=== PATIENT | male | born 1980 | race Caucasian/White ===

== ENCOUNTER 2020-01-09 21:50 | Emergency (ER) | payer BC, SELFPAY ==
--- NOTE | ~2020-01-09 | XR_ITS ---
EXAMINATION: XR chest 2V DATE: 01/09/2020 22:36 INDICATION: Heart palpitations TECHNIQUE: PA and lateral views of the chest are obtained. COMPARISON: None available FINDINGS: The lungs are free of acute opacities. There is no pleural effusion or pneumothorax. The ca rdiomediastinal silhouette is normal. The visualized bones and soft tissues are unremarkable. IMPRESSION: 1. No acute cardiopulmonary abnormality. Reviewed, dictated and finalized at location A. [facility]
--- NOTE | 2020-01-09 22:01 | ECG_ITS ---
Measurements Intervals [place] Rate: 88 P: 40 NE: 150 QRS: -34 QRSD: 89 T: 25 QT: 330 QTc: 401 Interpretive Statements SINUS RHYTHM ATRIAL PREMATURE COMPLEX LEFT AXIS DEVIATION BORDERLINE R WAVE PROGRESSION, ANTERIOR LEADS BORDERLINE ECG Electronically Signed On 01-10-2020 15:13:19 SIGNALLING AND COMMUNICATIONS ENGINEER by Azael Haskins D.O.
[2020-01-09 22:05] VITALS: BP 129/70; PULSE 87; RESP 20; TEMP 36.4; O2SAT 99
[2020-01-09 22:22] LABS: Basophils Absolute Auto 0.1 K/mm3 (0.0-0.1); Eosinophils Absolute Auto 0.1 K/mm3 (0-0.3); Eosinophils Percent Auto 0.7 % (0-4.4); Hematocrit 46.7 % (42.0-52.0); Hemoglobin 15.2 g/dL (14.0-18.0); Immature Granulocyte Absolute 0.03 K/mm3 (0.00-0.031); Immature Granulocyte Percent A 0.3 % (0-0.5); Lymphocytes Absolute Auto 1.84 K/mm3 (0.9-3.2); Lymphocytes Percent Auto 19.6 % (18.3-44.2); Mean Corpuscular HGB Conc 32.5 g/dl (32-36); Mean Corpuscular Hemoglobin 29.9 pg (26-34); Mean Corpuscular Volume 91.9 fl (80-100); Mean Platelet Volume 9.9 fl (7.4-10.4); Monocytes Percent Auto 10.7 % (2.6-8.5); Neutrophils Absolute Auto 6.4 K/mm3 (1.3-6.7); Neutrophils Percent Auto 67.7 % (45.5-73.1); Platelet Count Result 422 k/mm3 (150-375); Red Blood Count 5.08 M/mm3 (4.6-6.20); Red Cell Distribution Width 13.5 % (11.5-14.5); White Blood Count 9.4 K/mm3 (4.5-10.0)
[2020-01-09 22:32] LABS: INR 0.9; Prothrombin Time 12.3 Seconds (11.1-14.7)
[2020-01-09 22:33] LABS: Partial Thromboplastin Time 26.5 SECONDS (22.3-36.8)
[2020-01-09 22:35] LABS: Alanine Aminotransferase 26 U/L (4-50); Albumin Level 4.5 g/dL (3.5-5.1); Alkaline Phosphatase 62 U/L (38-126); Aspartate Amino Transferase 20 U/L (17-59); Bilirubin,Total 0.3 mg/dL (0.2-1.3); Blood Urea Nitrogen 12 mg/dL (9-20); Calcium 9.3 mg/dL (8.4-10.2); Carbon Dioxide 29 mmol/L (22-30); Chloride 100 mmol/L (98-107); Estimated Glomerular Filt Rate > 60; Glucose 153 mg/dL (75-110); Potassium 4.1 mmol/L (3.4-5.0); Sodium 140 mmol/L (137-145)
--- NOTE | 2020-01-09 22:41 | ED.GENADULT ---
HPI - General Adult General Chief complaint: Arrhythmia/Palpitations Stated complaint: palpitations Time Seen by Provider: 01/09/20 21:57 Source: patient Mode of arrival: ambulatory Limitations: no limitations History of Present Illness HPI narrative: Patient is a 39-year-old male who presents with intermittent fluttering of the chest noting history of atrial fibrillation has been under increasing stress denies any pain. Patient is not anything for his symptoms has history of anxiety as well patient notes last week he had a URI which has resolved patient on arrival in no distress denying any pain Related Data Home Medications Medication Instructions Recorded Confirmed hydrocodone 5 mg-acetaminophen 325 1 tablet PO Q6H PRN 11/26/19 12/10/19 mg tablet lisinopril 20 mg tablet 20 mg PO DAILY 11/26/19 12/10/19 multivitamin 1 tablet PO DAILY 11/26/19 12/10/19 tizanidine 4 mg tablet 4 mg PO TID PRN 11/26/19 12/10/19 sildenafil (pulm.hypertension) 20 See Rx Instructions PO .COMPLEX 12/10/19 12/10/19 mg tablet Allergies Allergy/AdvReac Type Severity Reaction Status Date / Time No Known Allergies Allergy Verified 01/09/20 22:09 Review of Systems Review of Systems: All systems reviewed & are unremarkable except as noted in HPI and below PMFSH Past Medical History Medical History Encounter for monitoring testosterone replacement therapy Family History Family History Mother Patient's mother is in good health Sibling Patient's sister is in good health Patient's brother is in good health Father Family history of diabetes mellitus in first degree relative Family history of congestive heart failure, Onset Age: 62 Family history of heart disease in male family member before age 55 Patient's father is Social History Social History Smoking status: Former smoker Smoking end date: 11/27/12 Alcohol intake: current Exam Narrative: Exam Narrative: GENERAL: Well-appearing, well-nourished, and in no acute distress. HEAD: Normocephalic, atraumatic. EYES: PERRLA and EOMI. ENT: Nares clear, no rhinorrhea or epistaxis. Mucous membranes moist. Oropharynx without tonsillar hypertrophy exudate or other lesions. NECK: Supple. No adenopathy or masses. CHEST: Clear to auscultation. No respiratory distress. No wheezes rales or rhonchi HEART: Regular rate and rhythm. No murmur heard. Normal peripheral pulses. EXTREMITIES: Normal range of motion. No edema. SKIN: Warm, dry, no rash. NEURO: No focal deficits. Alert and oriented x3. Cranial nerves II through XII grossly intact PSYCH: Normal mood and affect. Course Course Emergency Course: Patient in the room in no distress aware of case findings treatment plan and diagnosis agreeing to follow-up as directed or to return if symptoms worsen or concerns Vital Signs Vital signs: Vital Signs Temperature 97.6 F 01/09/20 22:05 Pulse Rate 87 01/09/20 22:05 Respiratory Rate 20 01/09/20 22:05 Blood Pressure 129/70 01/09/20 22:05 Pulse Oximetry 99 01/09/20 22:05 Temperature 97.6 F 01/09/20 22:05 Pulse Rate 80 01/10/20 00:27 Respiratory Rate 30 H 01/10/20 00:27 Blood Pressure 143/80 H 01/10/20 00:27 Pulse Oximetry 100 01/10/20 00:27 Medical Decision Making MDM Narrative Medical decision making narrative: Paitents EKGs and labs are without significant high risk changes. Cardiac risk facotrs were reviewd. Patient is felt likely to be low risk for ACS and resonable for further risk stratification testing as an outpatient. Pain was not suddne or maximal in onset without tearing or ripping. quality. No other signs or symptoms to suggest aortic dissection. A low-risk Wells criteria is noted. PE is felt to be unlikely. No pneumonia or URI symptoms were seen on
[2020-01-09 22:46] LABS: Troponin I < 0.012 ng/mL (0.000-0.034)
[2020-01-09 23:22] LABS: Thyroid Stimulating Hormone Reflex 0.729 uIU/mL (0.465-4.68)
[2020-01-10 00:27] VITALS: BP 143/80; PULSE 80; RESP 30; O2SAT 100
[2020-01-10] MEDS: KETOROLAC 30 MG/ML VIAL (*BKC) IV PUSH (00:46)
[2020-01-10 01:16] VITALS: TEMP 36.4
[2020-01-10 01:39] LABS: Troponin I < 0.012 ng/mL (0.000-0.034)
[2020-01-10 01:45] VITALS: BP 131/88; PULSE 78; RESP 19; O2SAT 97
== END 2020-01-10 01:45 | disposition home or self-care (01) ==
PROVIDERS: Emergency Medicine Emergency Medical Services; Emergency Provider Emergency Medicine; PCP Internal Medicine
DX: R00.2 Palpitations (principal); Z87.891 Personal history of nicotine dependence; I49.1 Atrial premature depolarization; R94.31 Abnormal electrocardiogram [ECG] [EKG]
CPT/HCPCS: 36415; 71046; 80053; 84443; 84484; 85025; 85380; 85610; 85730; 93005; 96374; 99284; J1885

== ENCOUNTER 2020-01-11 18:41 | Observation (INO) | payer BC, SELFPAY ==
[2020-01-11] VITALS (7 sets, daily range): BP systolic 114–129; BP diastolic 42–91; PULSE 92–157; RESP 16–18; TEMP 36.6–37.2; O2SAT 96–100; BMI 32.2; BMI 32.4
--- NOTE | ~2020-01-11 | XR_ITS ---
EXAMINATION: XR chest 2V DATE: 01/11/2020 22:28 INDICATION: Atrial fibrillation with rapid ventricular response. TECHNIQUE: PA and lateral views of the chest were obtained. COMPARISON: Chest radiograph dated 01/09/2020 and 09/21/2017 FINDINGS: The lungs remain clear with no focal airspace opacities, pulmonary edema, pleural effusion or pneumot horax. The cardiomediastinal silhouette is normal. Visualized bones and soft tissues are unremarkable . IMPRESSION: 1. No acute cardiopulmonary disease. Reviewed, dictated and finalized at location A. NC[facility] PRACTICE NURSE
--- NOTE | 2020-01-11 18:54 | ED.ARRPALP ---
HPI - Arrhythmia/Palpitations General Chief Complaint: Arrhythmia/Palpitations Stated Complaint: irregular heartbeat Time Seen by Provider: 01/11/20 18:52 Source: patient Mode of arrival: ambulatory Limitations: no limitations History of Present Illness HPI narrative: The pt is a 39 y/o male who presents to the ED c/o constant palpitations onset one hour ago. Pt describes the palpitations as feeling like a drum solo. Pt states that he has a PMHx of AFIB, and he has these episodes very infrequently. Pt states that he has had a previous cardiac ablation, and last had an episode of AFIB a couple of years ago. Pt notes that he is not on any medications for AFIB consistently because of how infrequent they are. Pt denies CP and dizziness. He notes that he may have had some SOB, but is unsure. Pt states that he does not drink alcohol or use any stimulants, and states that he smokes e-cigs without nicotine. Pt states that he is on Testosterone therapy. He states that he has a previous fusion that seems to have failed. Pt states that his rn appeals is Dr. Cooley. complaint: palpitations Onset (ago): hour(s) (1) Arrhythmia history: atrial fibrillation Associated symptoms: denies other symptoms Related Data Home Medications Medication Instructions Recorded Confirmed lisinopril 20 mg tablet 20 mg PO DAILY 11/26/19 01/11/20 multivitamin 1 tablet PO DAILY 11/26/19 01/11/20 tizanidine 4 mg tablet 4 mg PO TID PRN 11/26/19 01/11/20 duloxetine 30 mg PO DAILY 01/11/20 01/11/20 hydrocodone-acetaminophen 1 - 2 tablet PO Q4-6H PRN 01/11/20 01/11/20 sildenafil (pulm.hypertension) 20 mg PO DIRECTED PRN 01/11/20 01/11/20 Allergies Allergy/AdvReac Type Severity Reaction Status Date / Time No Known Allergies Allergy Verified 01/09/20 22:09 Review of Systems Review of Systems: All systems reviewed & are unremarkable except as noted in HPI and below Cardiovascular: Cardiovascular: Denies chest pain and Reports other (Palpitations that feel like a drum solo ) Neurologic: Denies dizziness PMFSH Past Medical History Medical History (Updated 01/11/20 @ 22:27 by Jenny Fischer MD) Afib Angina at rest Anxiety Chronic back pain Chronic back pain Encounter for monitoring testosterone replacement therapy Foot fracture, right HTN (hypertension) IBS (irritable bowel syndrome) Left radial fracture PUD (peptic ulcer disease) Sleep apnea Spinal fusion failure Surgical History Surgical History H/O cardiac radiofrequency ablation H/O microdiscectomy H/O spinal fusion History of open reduction and internal fixation (ORIF) procedure left radius Hx of LASIK Family History Family History Mother Patient's mother is in good health Sibling Patient's sister is in good health Patient's brother is in good health Father Family history of diabetes mellitus in first degree relative Family history of congestive heart failure, Onset Age: 62 Family history of heart disease in male family member before age 55 Patient's father is Social History Social History Smoking status: Former smoker Smoking end date: 11/27/12 Alcohol intake: former Substance use type: marijuana Gender identity (if verbalized by the patient): Male Spiritual care concerns: No Agree to blood products: Yes Comments PCP: Dr. Woodall Cardiology: Dr. Cooley Exam Narrative: Exam Narrative: GENERAL: Well-appearing, well-nourished, and in no acute distress. HEAD: Normocephalic, atraumatic EYES: PERRLA and EOMI, conjunctiva clear without discharge THROAT:Mucous membranes moist, Oropharynx normal without erythema, exudate, peritonsillar swelling or fluctuance NECK: Supple, without lymphadenopathy or mass RESPIRATORY: No respiratory distress, Airway patent, Respirations
--- NOTE | 2020-01-11 19:07 | ECG_ITS ---
Measurements Intervals [place] Rate: 155 P: ND: 0 QRS: -58 QRSD: 86 T: 60 QT: 254 QTc: 409 Interpretive Statements ATRIAL FIBRILLATION WITH RAPID VENTRICULAR RESPONSE LEFT ANTERIOR FASCICULAR BLOCK MINIMAL Q WAVES- LATERAL LEADS ABNORMAL ECG Electronically Signed On 01-12-2020 7:38:02 SIDE STITCHING MACHINE OPERATOR by Azael Haskins D.O.
[2020-01-11 19:23] LABS: Basophils Absolute Auto 0.1 K/mm3 (0.0-0.1); Basophils Percent Auto 1.4 % (0.2-1.2); Eosinophils Absolute Auto 0.1 K/mm3 (0-0.3); Eosinophils Percent Auto 1.2 % (0-4.4); Hematocrit 49.2 % (42.0-52.0); Hemoglobin 15.9 g/dL (14.0-18.0); Immature Granulocyte Absolute 0.04 K/mm3 (0.00-0.031); Immature Granulocyte Percent A 0.5 % (0-0.5); Lymphocytes Absolute Auto 1.88 K/mm3 (0.9-3.2); Lymphocytes Percent Auto 23.4 % (18.3-44.2); Mean Corpuscular HGB Conc 32.3 g/dl (32-36); Mean Corpuscular Hemoglobin 29.6 pg (26-34); Mean Corpuscular Volume 91.4 fl (80-100); Mean Platelet Volume 10.1 fl (7.4-10.4); Monocytes Absolute Auto 0.7 K/mm3 (0.1-0.6); Monocytes Percent Auto 8.9 % (2.6-8.5); Neutrophils Absolute Auto 5.2 K/mm3 (1.3-6.7); Neutrophils Percent Auto 64.6 % (45.5-73.1); Platelet Count Result 455 k/mm3 (150-375); Red Blood Count 5.38 M/mm3 (4.6-6.20); Red Cell Distribution Width 13.3 % (11.5-14.5); White Blood Count 8.1 K/mm3 (4.5-10.0)
[2020-01-11 19:32] LABS: INR 0.9; Prothrombin Time 11.9 Seconds (11.1-14.7)
[2020-01-11 19:33] LABS: Partial Thromboplastin Time 26.2 SECONDS (22.3-36.8)
[2020-01-11 19:35] LABS: Alanine Aminotransferase 26 U/L (4-50); Albumin Level 4.9 g/dL (3.5-5.1); Alkaline Phosphatase 72 U/L (38-126); Aspartate Amino Transferase 23 U/L (17-59); Bilirubin,Total 0.5 mg/dL (0.2-1.3); Blood Urea Nitrogen 14 mg/dL (9-20); Calcium 9.6 mg/dL (8.4-10.2); Carbon Dioxide 27 mmol/L (22-30); Chloride 98 mmol/L (98-107); Estimated CRCL calculation 130 ml/min; Estimated Glomerular Filt Rate > 60; Glucose 112 mg/dL (75-110); Potassium 3.7 mmol/L (3.4-5.0); Sodium 141 mmol/L (137-145)
[2020-01-11] MEDS: LACTATED RINGERS 1,000 ML 999 ML IV CONT (19:53)
[2020-01-11 21:24] LABS: Troponin I < 0.012 ng/mL (0.000-0.034)
[2020-01-11] MEDS: ENOXAPARIN 120 MG/0.8 ML SYRINGE 115 MG SUB-Q (21:46)
[2020-01-11] MEDS: METOPROLOL TARTRATE INJ 5 MG/5 ML VIAL IV PUSH (21:54)
--- NOTE | 2020-01-11 22:09 | PM.IMHP ---
H&P: HPI History of Present Illness Chief complaint: ATRIAL FIBRILLATION WITH RVR Narrative: This is a pleasant 39 year old Diabetic male with known history of paroxysmal atrial fibrillation. He was previously on Xarelto and has not had sustained atrial fibrillation for over 2 years since his last ablation. The patient presented to the hospital a few days ago when he felt that he was having intermittent fluttering of his chest. Tonight he returned to the hospital with palpitations and tachycardia. He states he knew he was back in atrial fibrillation. He denies any chest pain tonight. Associated symptoms tonight included shortness of breath especially when he was walking into the ER. The patient was found to be in atrial fibrillation w/ RVR in the ER. He has had congestion over the past week but no significant coughing, fevers, sore throat, or severe shortness of breath. He denies any recent rectal bleeding. No other symptoms are reported. He hasn't stopped any of his home medications although he reports that earlier in the week he took old cymbalta as he had run out. ER provider has consulted Cardiology. No chest xray was obtained in the ER tonight and his last CXR from 01/09/2020 was unremarkable. No other complaints tonight. Review of Systems Review of Systems: All systems reviewed & are unremarkable except as noted in HPI and below PMFSH Past Medical History Medical History Afib Angina at rest Anxiety Chronic back pain Chronic back pain Encounter for monitoring testosterone replacement therapy Foot fracture, right HTN (hypertension) IBS (irritable bowel syndrome) Left radial fracture PUD (peptic ulcer disease) Sleep apnea Spinal fusion failure Surgical History Surgical History H/O cardiac radiofrequency ablation H/O microdiscectomy H/O spinal fusion History of open reduction and internal fixation (ORIF) procedure left radius Hx of FABBY Family History Family History Mother Patient's mother is in good health Sibling Patient's sister is in good health Patient's brother is in good health Father Family history of diabetes mellitus in first degree relative Family history of congestive heart failure, Onset Age: 62 Family history of heart disease in male family member before age 55 Patient's father is Social History Social History Smoking status: Former smoker Smoking end date: 11/27/12 Alcohol intake: former Substance use type: marijuana Gender identity (if verbalized by the patient): Male Spiritual care concerns: No Agree to blood products: Yes Meds Home Medications and Allergies Home Medications Medication Instructions Recorded Confirmed Type lisinopril 20 mg tablet 20 mg PO DAILY 11/26/19 01/11/20 History multivitamin 1 tablet PO DAILY 11/26/19 01/11/20 History tizanidine 4 mg tablet 4 mg PO TID PRN 11/26/19 01/11/20 History metformin 500 mg tablet 1,000 mg PO BID #360 tablet 12/17/19 01/11/20 Rx testosterone cypionate 200 mg/mL 150 mg IM WEEKLY #10 ml 12/17/19 01/11/20 Rx intramuscular oil duloxetine 60 mg capsule,delayed 60 mg PO DAILY #30 cap 01/08/20 01/11/20 Rx release duloxetine 30 mg PO DAILY 01/11/20 01/11/20 History hydrocodone-acetaminophen 1 - 2 tablet PO Q4-6H PRN 01/11/20 01/11/20 History sildenafil (pulm.hypertension) 20 mg PO DIRECTED PRN 01/11/20 01/11/20 History Allergies Allergy/AdvReac Type Severity Reaction Status Date / Time No Known Allergies Allergy Verified 01/09/20 22:09 Vital Signs Vital Signs - 24 hr 01/11/20 18:43 01/11/20 19:23 01/11/20 19:53 Temperature 37.2 C 36.9 C Pulse Rate 92 157 H 123 H Respiratory Rate 18 18 16 Blood Pressure 123/91 H 114/80 119/68 Pulse Oximetry 100 98 96
--- NOTE | 2020-01-11 22:38 | ADMGEN ---
This patient, Job Silva, was admitted to IMU Room 206-01 at 2237. Patient/family oriented to hospital policies and general routines including ID bracelet, bed and alarms, visiting hours, pain management, procedures, bathroom and other care routines, personal items, smoking policy, room service/diet, and visiting hours. Valuables list has been completed. Information on how to activate the Rapid Response Team has been discussed. Patient/Family are encouraged to report perceived risks to care and to ask questions if they do not understand what they are told or what they should do.
[2020-01-11 23:44] LABS: Glucose Point of Care 97 (65-105)
[2020-01-12] VITALS (17 sets, daily range): BP systolic 102–128; BP diastolic 53–74; PULSE 71–125; RESP 16–20; TEMP 35.7–36.6; O2SAT 97–99
[2020-01-12] MEDS: DULOXETINE HCL 30 MG CAPSULE.DR PO ×2 (00:20→17:08)
[2020-01-12] MEDS: DULOXETINE 60 MG CAPSULE.DR PO ×2 (00:20→17:08)
[2020-01-12 01:59] LABS: Troponin I < 0.012 ng/mL (0.000-0.034)
[2020-01-12 05:38] LABS: Basophils Absolute Auto 0.1 K/mm3 (0.0-0.1); Basophils Percent Auto 1.4 % (0.2-1.2); Eosinophils Absolute Auto 0.1 K/mm3 (0-0.3); Eosinophils Percent Auto 1.7 % (0-4.4); Hemoglobin 15.6 g/dL (14.0-18.0); Immature Granulocyte Absolute 0.04 K/mm3 (0.00-0.031); Immature Granulocyte Percent A 0.5 % (0-0.5); Lymphocytes Absolute Auto 2.38 K/mm3 (0.9-3.2); Lymphocytes Percent Auto 30.4 % (18.3-44.2); Mean Corpuscular HGB Conc 32.5 g/dl (32-36); Mean Corpuscular Hemoglobin 29.8 pg (26-34); Mean Corpuscular Volume 91.6 fl (80-100); Mean Platelet Volume 10.3 fl (7.4-10.4); Monocytes Absolute Auto 0.8 K/mm3 (0.1-0.6); Monocytes Percent Auto 10.1 % (2.6-8.5); Neutrophils Absolute Auto 4.4 K/mm3 (1.3-6.7); Neutrophils Percent Auto 55.9 % (45.5-73.1); Platelet Count Result 430 k/mm3 (150-375); Red Blood Count 5.24 M/mm3 (4.6-6.20); Red Cell Distribution Width 13.2 % (11.5-14.5); White Blood Count 7.8 K/mm3 (4.5-10.0)
[2020-01-12 05:49] LABS: Blood Urea Nitrogen 13 mg/dL (9-20); Calcium 8.6 mg/dL (8.4-10.2); Carbon Dioxide 26 mmol/L (22-30); Chloride 102 mmol/L (98-107); Estimated CRCL calculation 164 ml/min; Estimated Glomerular Filt Rate > 60; Glucose 135 mg/dL (75-110); Magnesium 2.1 mg/dL (1.6-2.3); Potassium 3.8 mmol/L (3.4-5.0); Sodium 138 mmol/L (137-145)
[2020-01-12 08:16] LABS: Glucose Point of Care 136 (65-105)
[2020-01-12] MEDS: metFORMIN HCL 500 MG TABLET 1000 MG PO ×2 (10:20→17:08)
[2020-01-12] MEDS: MULTIVITAMINS THERAPEUTIC TAB (*BKC) 1 TABLET PO (10:20)
[2020-01-12] MEDS: ENOXAPARIN 120 MG/0.8 ML SYRINGE 110 MG SUB-Q (10:20)
[2020-01-12] MEDS: lisinopriL 20 MG TABLET PO (10:20)
--- NOTE | 2020-01-12 11:20 | PM.CNCAR ---
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 truck when he was taking in previously Will start oral systemic anticoagulation with Xarelto If he converts to sinus rhythm we can dha stop his IV diltiazem Follow-up tomorrow if used to persistent atrial fib and electrical cardioversion can be considered/performed History of Present Illness History of Present Illness Consult date/time: Date of service: 01/12/20 11:20 Consult reason: atrial fibrillation Reason For Visit: ATRIAL FIBRILLATION WITH RVR Narrative: This is a pleasant 39-year-old man who has a history of paroxysmal atrial fibrillation for a long time and is admitted to the hospital from the emergency room last evening with a symptomatic recurrence of his arrhythmia. The patient has been and is followed by Dr. Cooley of our practice. He has a history of atrial fibrillation beginning when he was a teenager. The patient has been through a number of recurrences of his arrhythmia which he says typically is self limited and does not require cardioversion. He does not believe that he is ever required an electrical cardioversion to restore sinus rhythm. In any event he was referred by Dr. Cooley for consultation and has undergone [address] Garcia at [facility]. Most recently he underwent a pulmonary base in isolation procedure in March of 2019 after which he has done well and has not had any recurrences of his AFib. Prior to that he was taking metoprolol and apixaban for systemic anticoagulation. Previously he was also on Xarelto. The patient has no send the chart indicating that he has not responded well to medical antiarrhythmic therapy but on taking his history today I am not sure that that is the case. He states that in the past when he has had recurrences of atrial fib P is commonly treated with propafenone and over time will convert back to sinus rhythm. As an outpatient then he states typically the drug is withdrawn. In the past he was also treated with amiodarone for short period of time he can't remember what difficulty if any he had with that agent. Nose of the only 2 specific antiarrhythmic agents Kemi whitmore has a regular direct recollection of having been used in the past. After his most recent ablation procedure as stated above his beta-gisella and anticoagulation treatment had been withdrawn. He was last seen in our office and November last month at which time he was clinically doing well. Yesterday when he had the recurrence of atrial fibrillation he was at a family which was somewhat stressful. The did received notice the arrhythmia though until later after the service was over in the there were having a family dinner. In the emergency room following evaluation he was of course placed on intravenous diltiazem which has provided fairly good heart rate control and after which she became essentially asymptomatic. He is receiving full-dose therapeutic subcu Lovenox. Review of Systems Constitutional: Constitutional: Reports no additional constitutional complaints Eyes: Eyes: Reports no additional eye complaints ENT: Reports system reviewed and no additional complaints, except as documented Cardiovascular: Cardiovascular: Reports as per HPI and Reports palpitations Respiratory: Respiratory: Reports no additional respiratory complaints Gastrointestinal: Gastrointestinal: Reports no additional gastrointestinal complaints Integumentary/Breasts: Skin/Breast: Reports system reviewed and no additional complaints, except as docu Neurologic: Reports system reviewed and no additional complaints, except as documented Psychiatric: Psy
--- NOTE | 2020-01-12 12:50 | PM.IMPN ---
Progress Note: A&P Assessment and Plan (1) Atrial fibrillation with RVR: Code(s): I48.91 - Unspecified atrial fibrillation Status: Acute Assessment and Plan: Appreciate help from cardiology. Telemetry reviewed on 01/12/2020 with atrial fibrillation with heart rate controlled. Currently on IV diltiazem drip. Plan to discontinue IV diltiazem if converts to sinus rhythm. Started on Rythmol per cardiology. Started on oral Xarelto. Will continue to monitor. (2) Diabetes mellitus: Qualifiers: Diabetes mellitus complication status: without complication Diabetes mellitus group home insulin use: without medical terminologist use Diabetes mellitus type: type 2 Qualified Code(s): E11.9 - Type 2 diabetes mellitus without complications Code(s): E11.9 - Type 2 diabetes mellitus without complications Status: Chronic Assessment and Plan: Glucose reviewed on 01/12/2020 and presently stable. Will check hemoglobin A1c. Continue metformin. Sliding scale insulin available as needed. (3) HTN (hypertension): Qualifiers: Hypertension type: unspecified Qualified Code(s): I10 - Essential (primary) hypertension Code(s): I10 - Essential (primary) hypertension Status: Chronic Assessment and Plan: Blood pressure reviewed on 01/12/2020 and stable. Continue to monitor with IV diltiazem and oral lisinopril. (4) Chronic back pain: Qualifiers: Back pain laterality: unspecified Back pain location: back pain in unspecified location Qualified Code(s): M54.9 - Dorsalgia, unspecified; G89.29 - Other chronic pain Code(s): M54.9 - Dorsalgia, unspecified; G89.29 - Other chronic pain Status: Chronic Assessment and Plan: Longstanding issue. Continue Cymbalta. Will hold home hydrocodone acetaminophen and tizanidine for now. Will continue to monitor. (5) DVT prophylaxis: Code(s): Z29.9 - Encounter for prophylactic measures, unspecified Status: Acute Assessment and Plan: Now on Xarelto. Time Spent With Patient Time with patient: 15 - 25 minutes Subjective Date/time seen: 01/12/20 12:50 Interval history: Date of Service: 01/12/2020. Admitted with atrial fibrillation with RVR. No chest pain or palpitations. Shortness of breath with exertion. No abdominal pain. No headache or dizziness. Review of Systems Constitutional: Constitutional: Denies chills and Denies fever(s) ENT: Reports system reviewed and no additional complaints, except as documented Cardiovascular: Cardiovascular: Denies chest pain and Denies palpitations Respiratory: Respiratory: Reports dyspnea on exertion Gastrointestinal: Gastrointestinal: Denies abdominal pain, Denies nausea and Denies vomiting Genitourinary: Genitourinary: Reports no additional male genitourinary complaints Integumentary/Breasts: Skin/Breast: Denies rash Neurologic: Denies vertigo and Denies headache(s) Psychiatric: Psychiatric: Denies anxiety, Denies confusion and Denies depression Exam Narrative: Exam Narrative: Awake and alert. Const: General: no acute distress HENMT: Mouth: Yes moist mucous membranes Neck: Neck: supple Lymphatic: lymphadenopathy not noted Resp: Auscultation: clear to auscultation bilaterally, no rales and no wheezes Cardio: Rate: regular rate Rhythm: abnormal rhythm irregularly irregular GI: Inspection: non-distended GI Palp: Yes Soft to palpation and No Tenderness to palpation present (GI) Auscultation: normal bowel sounds Skin: General skin exam: normal color Neuro: Cognition (Neuro): normal cognition Speech: normal speech Motor exam (neuro): Normal motor muscle tone present throughout Extrem: General: no edema Psych: Mental Status: mental status grossly normal Affect: normal affect Objective Data Vital Signs Vital Signs: Vital Signs - 24 hr 01/11/20 18:43 01/11/20 19:23 01/11/20 19:53 Temperature 98.9 F 98.4 F Pulse Rate 92 157
[2020-01-12 13:07] LABS: Glucose Point of Care 127 (65-105)
[2020-01-12] MEDS: RIVAROXABAN 20 MG TABLET PO (17:08)
[2020-01-12 17:18] LABS: Glucose Point of Care 149 (65-105)
[2020-01-12 20:24] LABS: Glucose Point of Care 119 (65-105)
[2020-01-13] VITALS (11 sets, daily range): BP systolic 126–141; BP diastolic 65–80; PULSE 60–85; RESP 16–20; TEMP 36.2–36.8; O2SAT 97–99
[2020-01-13 05:29] LABS: Blood Urea Nitrogen 14 mg/dL (9-20); Calcium 9.2 mg/dL (8.4-10.2); Carbon Dioxide 32 mmol/L (22-30); Chloride 98 mmol/L (98-107); Estimated CRCL calculation 146 ml/min; Estimated Glomerular Filt Rate > 60; Glucose 116 mg/dL (75-110); Magnesium 2.1 mg/dL (1.6-2.3); Potassium 3.9 mmol/L (3.4-5.0); Sodium 138 mmol/L (137-145)
[2020-01-13 05:40] LABS: Hemoglobin A1C 5.9 % (<5.7)
[2020-01-13 08:53] LABS: Glucose Point of Care 112 (65-105)
[2020-01-13] MEDS: MULTIVITAMINS THERAPEUTIC TAB (*BKC) 1 TABLET PO (08:56)
[2020-01-13] MEDS: metFORMIN HCL 500 MG TABLET 1000 MG PO (08:56)
[2020-01-13] MEDS: lisinopriL 20 MG TABLET PO (08:57)
--- NOTE | 2020-01-13 09:46 | PM.PNCARD ---
Progress Note: A&P Assessment and Plan (1) Atrial fibrillation with rapid ventricular response: Code(s): I48.91 - Unspecified atrial fibrillation Status: Acute Assessment and Plan: Converted to normal sinus rhythm 01/12/2020 at 5:38 p.m. after one dose of propafenone. Maintaining sinus rhythm. Echo has been completed. Continue Propafenone 325 mg every 12 hours. 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 Will have his records from [facility] scanned into his [facility] chart so that will be able to review. Additional Plan OK to discharge if echocardiogram is unremarkable. Plan discussed Dr. Barker [id number] 01/13/2020 Subjective Date/time seen: 01/13/20 09:46 Interval history: Follow-up for: Admitted with atrial fibrillation with RVR. Date of service: 01/13/2020 Subjective: Tired. Did not sleep very well. No chest discomfort, shortness of breath or palpitations. Chronic back pain. Review of Systems Constitutional: Constitutional: Denies chills and Denies fatigue Eyes: Eyes: Denies blurry vision ENT: Reports Normal hearing present and Denies dizziness Cardiovascular: Cardiovascular: Denies chest pain, Denies pedal edema, Denies lightheadedness, Denies dyspnea and Denies orthopnea Respiratory: Respiratory: Denies cough and Denies dyspnea Gastrointestinal: Gastrointestinal: Denies abdominal pain, Denies nausea and Denies vomiting Genitourinary: Genitourinary: Denies hematuria Musculoskeletal: Musculoskeletal: Reports back pain (Chronic) Integumentary/Breasts: Skin/Breast: Denies rash Neurologic: Reports Normal hearing present and Denies dizziness Psychiatric: Psychiatric: Denies anxiety and Denies depression Endocrine: Endocrine: Denies fatigue and Denies palpitations Hematologic/Lymphatic: Hematologic/Lymphatic: Denies easy bruising Exam Const: General: comfortable and no acute distress HENMT: Mouth: Yes moist mucous membranes Eyes: Sclera: sclerae normal Pupils: Equal, round and reactive pupils present Neck: Neck: supple and no JVD Other: Carotid upstrokes are normal with no bruits audible bilaterally Resp: Effort & Inspection: normal respiratory effort Auscultation: clear to auscultation bilaterally Cardio: Rhythm: abnormal rhythm GI: Auscultation: normal bowel sounds Skin: General skin exam: normal color Neuro: General: patient oriented x3 Cranial nerves: Yes Equal, round and reactive pupils present Cognition (Neuro): normal cognition Speech: normal speech Extrem: General: normal to inspection and no pedal edema Psych: Appearance: grossly normal Mental Status: mental status grossly normal Speech and movement: Normal speech and movement present Affect: normal affect Attitude: cooperative Thought process: Normal thought process present Thought content: Yes Normal thought content present Insight: Good insight present (Psych) Judgement: Good judgement present (Psych) Objective Data Vital Signs Vital Signs: Vital Signs - 24 hr 01/12/20 10:00 01/12/20 11:39 01/12/20 12:00 Temperature 35.8 C L Pulse Rate 102 H 79 102 H Respiratory Rate Blood Pressure 108/71 Pulse Oximetry 97 01/12/20 14:00 01/12/20 16:00 01/12/20 18:36 Temperature 36.1 C L Pulse Rate 89 78 74 Respiratory Rate 16 Blood Pressure 108/74 Pulse Oximetry 99 01/12/20 19:55 01/12/20 20:00 01/12/20 20:08 Temperature 36.6 C Pulse Rate 71 76 81 Respiratory Rate 20 Blood Pressure 128/66 Pulse Oximetry 98 01/12/20 22:00 01/13/20 00:00 01/13/20 02:00 Temperature 36.8 C Pulse Rate 77 73 72 Respiratory Rate 20 Blood Pressure 131/65 Pulse Oximetry 99 01/13/20 04:00 01/13/20 06:00 01/13/20 07:56 Temperature 36.4 C 36.2 C L Pulse Rate 60 68 64 Respiratory Rate 16 18 Blood Pressure 130/77 141/76 H Pulse Oximetry 98 97
--- NOTE | 2020-01-13 09:53 | PM.IMPN ---
Progress Note: A&P Assessment and Plan (1) Atrial fibrillation with RVR: Code(s): I48.91 - Unspecified atrial fibrillation Status: Acute Assessment and Plan: Appreciate help from cardiology. Telemetry reviewed on 01/13/2020 with sinus rhythm with patient having converted on 01/12/2020 at 1738 with IV diltiazem discontinued subsequently. Received 1 dose of Rythmol prior to conversion. Remains on Rythmol.atrial fibrillation with heart rate controlled. Remains on Xarelto anticoagulation. Discussed with Cardiology. Anticipate discharge today after review echocardiogram as long as no issues. Will need to see electromechanical technician as outpatient. Continue to monitor while here. (2) Diabetes mellitus: Qualifiers: Diabetes mellitus type: type 2 Diabetes mellitus middle or intermediate school principal insulin use: without intermediate use Diabetes mellitus complication status: without complication Qualified Code(s): E11.9 - Type 2 diabetes mellitus without complications Code(s): E11.9 - Type 2 diabetes mellitus without complications Status: Chronic Assessment and Plan: Hemoglobin A1c 5.9. Glucose reviewed on 01/13/2020 and controlled. Continue metformin. (3) HTN (hypertension): Qualifiers: Hypertension type: unspecified Qualified Code(s): I10 - Essential (primary) hypertension Code(s): I10 - Essential (primary) hypertension Status: Chronic Assessment and Plan: Blood pressure reviewed on 01/13/2020 and remains stable. Continue to monitor on lisinopril. (4) Chronic back pain: Qualifiers: Back pain location: back pain in unspecified location Back pain laterality: unspecified Qualified Code(s): M54.9 - Dorsalgia, unspecified; G89.29 - Other chronic pain Code(s): M54.9 - Dorsalgia, unspecified; G89.29 - Other chronic pain Status: Chronic Assessment and Plan: Longstanding issue. Continue Cymbalta. Resume home hydrocodone acetaminophen and tizanidine. (5) DVT prophylaxis: Code(s): Z29.9 - Encounter for prophylactic measures, unspecified Status: Acute Assessment and Plan: On Xarelto. Time Spent With Patient Time with patient: 15 - 25 minutes Subjective Date/time seen: 01/13/20 09:53 Interval history: Date of Service: 01/13/2020. Admitted with atrial fibrillation with RVR. Feels much better. No chest pain or palpitations. No shortness of breath. No headache or dizziness. Wants to go home. Review of Systems Review of Systems: Narrative: Feeling better. Wants to go home. Constitutional: Constitutional: Denies chills and Denies fever(s) ENT: Reports system reviewed and no additional complaints, except as documented Cardiovascular: Cardiovascular: Denies chest pain and Denies palpitations Respiratory: Respiratory: Denies dyspnea and Denies dyspnea on exertion Gastrointestinal: Gastrointestinal: Denies abdominal pain, Denies nausea and Denies vomiting Genitourinary: Genitourinary: Reports no additional male genitourinary complaints Musculoskeletal: Musculoskeletal: Reports back pain (Chronic) Integumentary/Breasts: Skin/Breast: Denies rash Neurologic: Denies confusion, Denies vertigo and Denies headache(s) Psychiatric: Psychiatric: Denies anxiety and Denies depression Exam Narrative: Exam Narrative: Awake and alert. Const: General: no acute distress HENMT: Mouth: Yes moist mucous membranes Neck: Neck: supple Lymphatic: lymphadenopathy not noted Resp: Auscultation: clear to auscultation bilaterally, no rales and no wheezes Cardio: Rate: regular rate Rhythm: regular rhythm and abnormal rhythm GI: Inspection: non-distended Auscultation: normal bowel sounds Skin: General skin exam: normal color Neuro: General: No confusion Cognition (Neuro): normal cognition Speech: normal speech Motor exam (neuro): Normal motor muscle tone present throughout Extrem: General: no edema Psych: Mental Status:
[2020-01-13 12:26] LABS: Glucose Point of Care 128 (65-105)
--- NOTE | 2020-01-13 20:51 | PM.DS ---
DS: Diagnosis Admitting Diagnosis Admitting Diagnosis: Unspecified atrial fibrillation Discharge Diagnosis (1) Atrial fibrillation with RVR: Code(s): I48.91 - Unspecified atrial fibrillation Status: Acute (2) Diabetes mellitus: Qualifiers: Diabetes mellitus complication status: without complication Diabetes mellitus rn long term care insulin use: without senior living use Diabetes mellitus type: type 2 Qualified Code(s): E11.9 - Type 2 diabetes mellitus without complications Code(s): E11.9 - Type 2 diabetes mellitus without complications Status: Chronic (3) HTN (hypertension): Qualifiers: Hypertension type: unspecified Qualified Code(s): I10 - Essential (primary) hypertension Code(s): I10 - Essential (primary) hypertension Status: Chronic (4) Chronic back pain: Qualifiers: Back pain laterality: unspecified Back pain location: back pain in unspecified location Qualified Code(s): M54.9 - Dorsalgia, unspecified; G89.29 - Other chronic pain Code(s): M54.9 - Dorsalgia, unspecified; G89.29 - Other chronic pain Status: Chronic DS: Summary Hospital Course Reason for hospitalization: Intermittent fluttering in chest. Hospital Course: Date of Service of Discharge: January 13, 2020. History of Present Illness: Patient is a 39-year-old gentleman with diabetes and known history of paroxysmal atrial fibrillation who presented to the emergency room complaint of intermittent fluttering of his chest. Patient has had previous ablation. He reports he has been having problems with palpitations and tachycardia and realized he was back in atrial fibrillation. No chest pain on presentation. He did have associated shortness of breath especially with activity. No recent fever, chills or sweats. No recent change in medications. On evaluation the emergency room, he was noted to be in atrial fibrillation with RVR. Cardiology was consulted with patient started on IV diltiazem drip. He was placed in observation for further evaluation and treatment. Course in Hospital: Patient was admitted to the intermediate care unit where he remained for the duration of his stay. As noted, he was started on IV diltiazem with cardiology consultation. After seen by Cardiology, propafenone was also started. Patient converted back to sinus rhythm at 5:38 p.m. on 01/12/2020 prior to 2nd dose of propafenone. At that time, diltiazem was discontinued and patient was continued to be monitored. He continued to be monitored with rhythm remaining in sinus and rate controlled. On the day of discharge with EF at 60-65% and no evidence of atrial dilation. He was placed on Xarelto for anticoagulation during his stay. Shortness of breath improved with heart rate control and conversion to sinus rhythm. Glucose was monitored throughout his stay and controlled on his home metformin. Blood pressure was monitored on home lisinopril and also stable with diltiazem in place as well as after diltiazem was discontinued. Home Cymbalta was continued for his back pain but other medications held. With patient now on propafenone, he was advised he would need to hold tizanidine due to potential interaction. With the patient stable and plan for outpatient follow-up with saw grinder, he was discharged home on January 13, 2020. Status at Discharge Cognitive/behavioral status at discharge: Stable. Functional status at discharge: independent ambulation Overall status at discharge: patient is back to baseline Time Spent with Patient Time attestation: Total time spent providing and/or coordinating discharge services: 40 minutes. Time spent: Greater than 30 minutes Exam Narrative: Exam Narrative: Vital Signs Temp Pulse Resp BP Pulse Ox 98.9 F 92 18 123/91 H 100 01/11/20 18:43 01/11/20 1
--- NOTE | 2020-01-13 22:06 | ECHO_ITS ---
Patient Info Name: Job Silva Age: 39 years : 1980 Gender: Male Ht: 74 in Wt: 250 lbs BSA: 2.46 m2 HR: 75 bpm BP: 130 / 77 mmHg Heart Rhythm: Sinus Rhythm Technical Quality: Good Exam Date: 01/13/2020 9:11 AM Exam Location: [facility] Patient Status: Inpatient Admit Date: 01/11/2020 Staff Ordering Physician: Esau Biggs MD Roofing Subcontractor: Carson Tompkins, SUNITA, RT Attending Provider: Esau Biggs MD Referring Physician: Dian LAUREN; Exam Type: CA echo doppler color flow Study Info Indications I48.0 - Paroxysmal atrial fibrillation Complete two-dimensional, color flow and Doppler transthoracic echocardiogram is performed. Summary 1. Left ventricular chamber dimension is normal. 2. Left ventricular systolic function is normal, estimated at 60-65%. 3. No evidence of atrial dilation. 4. No valvular pathology. Left Ventricle Left ventricular chamber dimension is normal. Left ventricular systolic function is normal, estimated at 60-65%. The left ventricular diastolic function is normal. Right Ventricle Right ventricular chamber dimension is normal. Left Atria Left atrial chamber dimension is normal. Right Atria Right atrial chamber dimension is normal. Aortic Valve The aortic valve is trileaflet. Pulmonic Valve The pulmonic valve is not well visualized. Mitral Valve The mitral valve has normal leaflets. Tricuspid Valve The tricuspid valve leaflets are normal. Pericardium/Pleural The pericardium appears normal. Aorta The aortic root size at the sinus of Valsalva is normal. Left Ventricular Outflow Tract Name Value Normal LVOT 2D LVOT Diameter 2.1 cm LVOT Doppler LVOT Peak Gradient 6 mmHg LVOT Mean Gradient 3 mmHg LVOT VTI 23 cm LVOT VTI/AV VTI Ratio 0.9 LVOT Stroke Volume 79 ml LVOT CO 6.2 l/min LVOT CI 2.5 l/min/m2 Pulmonic Valve Name Value Normal PV Doppler PV Peak Gradient 4 mmHg Mitral Valve Name Value Normal MV Doppler MV Decel [place] 462 cm/s2 MV PHT 56 ms MV Area (PHT) 3.9 cm2 4.0-5.0 MV Diastolic Function MV E Peak Velocity 90 cm/s MV A Peak Velocity 51 cm/s MV E/A
== END 2020-01-13 15:55 | disposition home or self-care (01) ==
LOC: ANHED 21:23 → ANHIMU 21:36
PROVIDERS: Admitting Provider Family Medicine; Emergency Provider General Practice; PCP Internal Medicine; Visit Provider Hospitalist
DX: I48.91 Unspecified atrial fibrillation (principal); E11.9 Type 2 diabetes mellitus without complications; I10 Essential (primary) hypertension; G89.29 Other chronic pain; M54.9 Dorsalgia, unspecified; Z87.891 Personal history of nicotine dependence; Z79.84 Long term (current) use of oral hypoglycemic drugs; Z79.899 Other long term (current) drug therapy
CPT/HCPCS: 36415; 71046; 80048; 80053; 83036; 83735; 84484; 85025; 85610; 85730; 93005; 93306; 96361; 96365; 96366; 96372; 96374; 96375; 99285; A9270; G0378; J1650; J7120

== ENCOUNTER → 2020-12-02 11:17 | Outpatient (CLI) | payer BC, SELFPAY ==
--- NOTE | ~2020-12-02 | US_ITS ---
EXAMINATION: US soft tissue head and neck DATE: 12/02/2020 11:50 INDICATION: Localized enlarged lymph nodes in right neck. TECHNIQUE: Multiple grayscale and Doppler ultrasound images of the neck were obtained. COMPARISON: None FINDINGS: There are normal-sized lymph nodes in right neck in the patient's area of concern. IMPRESSION: 1. No abnormal neck mass or lymphadenopathy. Reviewed, dictated and finalized at location A. OP CONSULTANT
== END ==
PROVIDERS: PCP Internal Medicine; Visit Provider Nurse Practitioner
DX: R59.0 Localized enlarged lymph nodes (principal)
CPT/HCPCS: 76536

== ENCOUNTER 2021-05-18 11:43 | Outpatient (CLI) | payer BC, SELFPAY ==
--- NOTE | ~2021-05-18 | XR_ITS ---
EXAMINATION: XR foot RT min 3V DATE: 05/18/2021 12:02 INDICATION: Right foot pain TECHNIQUE: Dorsoplantar, lateral, and 2 oblique views of the right foot were obtained. COMPARISON: 10/14/2008 FINDINGS: There is no fracture, dislocation, or subluxation. The bones, soft tissues, and joint space s are normal. IMPRESSION: 1. No acute osseous abnormality. Reviewed, dictated and finalized at location A.
== END 2021-05-18 11:44 | disposition home or self-care (01) ==
PROVIDERS: PCP Internal Medicine; Visit Provider Nurse Practitioner
DX: M79.671 Pain in right foot (principal)
CPT/HCPCS: 73630

== ENCOUNTER 2021-05-29 09:00 | Outpatient (CLI) | payer BC, SELFPAY ==
--- NOTE | ~2021-05-29 | MR_ITS ---
EXAMINATION: MR foot RT wo con DATE: 05/29/2021 11:05 INDICATION: Right foot pain. TECHNIQUE: Magnetic resonance imaging (MRI) of the right foot was performed without intravenous contr ast. Sequences included sagittal T1-weighted FSE and STIR FSE, long-axis PD-weighted FS FSE and PD-we ighted FSE, and short-axis PD-weighted FS FSE and T1-weighted FSE. COMPARISON: Right foot radiograph 05/18/2021 FINDINGS: Motion artifact is noted. A bunionette deformity is noted. No fracture. Joint spaces are no rmal. Lisfranc ligament is normal. The flexor and extensor tendons are normal. IMPRESSION: 1. Marye. Reviewed, dictated and finalized at location A. IMPRESSION: 1. Bunionette.
== END 2021-05-29 09:01 | disposition home or self-care (01) ==
LOC: ANHIMG 09:01
PROVIDERS: PCP Internal Medicine; Visit Provider Nurse Practitioner
DX: M79.671 Pain in right foot (principal); M21.621 Bunionette of right foot
CPT/HCPCS: 73718

== ENCOUNTER 2021-07-21 17:30 | Emergency (ER) | payer BC, SELFPAY ==
--- NOTE | 2021-07-21 18:41 | PC.NURSE ---
PT STATES- I'M LEAVING, TAKING MY CHANCES AND GOING [place]
== END 2021-07-21 18:41 | disposition left against medical advice (07) ==
DX: Z53.21 Procedure and treatment not carried out due to patient leaving prior to being seen by health care provider (principal)
CPT/HCPCS: 99199

== ENCOUNTER 2021-07-22 11:05 | Outpatient (CLI) | payer BC, SELFPAY ==
--- NOTE | ~2021-07-22 | US_ITS ---
EXAMINATION: US abdomen complete EXAM DATE: 07/22/2021 11:43 INDICATION: R10.9 - Unspecified abdominal pain . TECHNIQUE: Multiple grayscale and Doppler images of the complete abdomen were obtained (by a technolo gist who performed the scan) and subsequently reviewed. There is no prior study for comparison. FINDINGS: The abdominal aorta is normal in caliber. Visualized portion IVC is patent. The pancreatic head a nd body are normal in appearance. The pancreatic tail is not visualized. The liver has normal echogenicity and contour. There are no focal liver lesions identified. There is no evidence of intrahepatic biliary duct dilation. Portal venous flow was seen in the hepatopedal , normal direction and has normal Doppler waveform. Common bile duct measures 6 mm, which is normal. The gallbladder wall is normal in thickness, with ex pected amount of distention. No sonographic evidence of pericholecystic fluid. There is no cholelit hiases. Technologist performing exam reports patient did not demonstrate sonographic Tompkins's sign. Please note that this sign is less reliable in patients who have received pain medication. Right kidney: There is normal contour and echogenicity. It measures 12.3 x 5.0 x 5.5 centimeters. There are no focal renal lesions identified. There is no hydronephrosis. Left kidney: There is normal contour and echogenicity. It measures 11.7 x 5.6 x 6.1 centimeters. T here are no focal renal lesions identified. There is no hydronephrosis. The spleen measures 9.7 centimeters and is morphologically normal. IMPRESSION: Unremarkable complete abdominal ultrasound exam. Reviewed, dictated and finalized at location A.
--- NOTE | ~2021-07-22 | CT_ITS ---
EXAMINATION: CT abdomen pelvis wo con DATE: 07/22/2021 14:23 INDICATION: Unspecified abdominal pain TECHNIQUE: Computed tomography (CT) of the abdomen and pelvis was performed without intravenous contr ast. Automated exposure control and iterative reconstruction technique were employed. The dose-length product was 1150.14 mGy-cm. COMPARISON: None FINDINGS: Lung bases are clear. Heart size is normal. No pericardial or pleural effusion. Liver, gallbladder, s pleen, pancreas, bilateral adrenal glands and kidneys are normal. Fluid throughout the colon consiste nt with diarrhea. No bowel obstruction. Tiny calcified appendicolith in the distal third of the other chow normal-appearing appendix with no periappendiceal inflammatory stranding to suggest acute append icitis. Bladder is normal. No free intraperitoneal gas or fluid. No pathologically enlarged abdominal or pelvic lymphadenopathy. Instrumented L4-L5 combined anterior and posterior spinal fusion with int erbody bone graft cages and bilateral vertical goyo and pedicle screw fixation. IMPRESSION: 1. Fluid throughout the colon consistent with diarrhea. Correlate for gastroenteritis. Reviewed, dictated and finalized at location B. IMPRESSION: 1. Fluid throughout the colon consistent with diarrhea. Correlate for gastroent eritis.
== END 2021-07-22 11:06 | disposition home or self-care (01) ==
PROVIDERS: PCP Internal Medicine; Visit Provider Nurse Practitioner
DX: R10.9 Unspecified abdominal pain (principal)
CPT/HCPCS: 74176; 76700

== ENCOUNTER → 2021-12-21 12:54 | Outpatient (CLI) | payer BC, SELFPAY ==
--- NOTE | ~2021-12-21 | MR_ITS ---
EXAMINATION: MR lumbar spine wo con EXAM DATE: 12/21/2021 13:59 INDICATION: Lumbar radiculopathy lumbar radiculopathy. TECHNIQUE: Multi-sequential, multiplanar MR images of the lumbar spine were obtained without contrast . Sagittal T1, T2, T2 fat saturation images. Axial T2 weighted images. There is no prior study for comparison. FINDINGS: Interbody and posterior fusion L4-S1. The vertebral bodies are aligned in the AP dimension. Vertebral body and disc heights are well-maintained. There are no suspicious marrow signal abnormali ties. Paraspinal soft tissue is unremarkable. The conus medullaris terminates at the L1 level and has normal signal intensity and morphology. Level by level evaluation: T12-L1: Disc does not extend beyond the endplate margin. Facet arthropathy: None. Neural foraminal stenosis: No stenosis. Central canal stenosis: No stenosis. L1-L2: Disc does not extend beyond the endplate margin. Facet arthropathy: Mild. Neural foraminal stenosis: No stenosis. Central canal stenosis: No stenosis. L2-L3: Disc does not extend beyond the endplate margin. Facet arthropathy: Mild. Neural foraminal stenosis: No stenosis. Central canal stenosis: No stenosis. L3-L4: There is a mild diffuse disc bulge. Facet arthropathy: Mild to moderate. Neural foraminal stenosis: Mild bilateral. Central canal stenosis: Mild. L4-L5: This level is fused. Facet arthropathy: Fused. Neural foraminal stenosis: No stenosis. Central canal stenosis: No stenosis. Left hemilaminectomy. L5-S1: This level is fused. Facet arthropathy: Mild. Neural foraminal stenosis: Probably moderate right and mild to moderate left. Central canal stenosis: No stenosis. IMPRESSION: 1. L3-L5 fusion. 2. Mild to moderate lower lumbar spondylosis. Reviewed, dictated and finalized at location A. CAPPER
== END ==
PROVIDERS: PCP Internal Medicine; Visit Provider Nurse Practitioner Adult Health
DX: M47.26 Other spondylosis with radiculopathy, lumbar region (principal); Z98.1 Arthrodesis status
CPT/HCPCS: 72148

== ENCOUNTER → 2021-12-21 12:57 | Outpatient (CLI) | payer BC, SELFPAY ==
--- NOTE | ~2021-12-21 | MR_ITS ---
EXAMINATION: MR thoracic spine wo con EXAM DATE: 12/21/2021 13:59 INDICATION: Back pain, thoracic back pain, thoracic. TECHNIQUE: Multi-sequential, multiplanar MR images of the thoracic spine were obtained without contra st. Sagittal T1, T2, T2 fat saturation, axial T2 weighted images reviewed. There is no prior study for comparison. FINDINGS: The vertebral bodies are aligned in the AP dimension. Vertebral body and disc heights are w ell-maintained. There are no suspicious marrow signal abnormalities. The central canal and neural for amen are widely patent. The spinal cord signal intensity and intrinsic morphology is normal. Mild dif fuse thoracic facet arthropathy. Paraspinal soft tissue is unremarkable. IMPRESSION: Mild thoracic facet arthropathy. No stenosis. Reviewed, dictated and finalized at location A. NICAL MGR
== END ==
PROVIDERS: PCP Internal Medicine; Visit Provider Nurse Practitioner Adult Health
DX: M54.6 Pain in thoracic spine (principal)
CPT/HCPCS: 72146

== ENCOUNTER 2023-01-21 09:30 | Outpatient (CLI) | payer OTHER, SELFPAY ==
--- NOTE | ~2023-01-21 | MR_ITS ---
EXAMINATION: MR lumbar spine wo con DATE: 01/21/2023 11:20 INDICATION: Postlaminectomy syndrome. Chronic low back pain. Bilateral leg pain. TECHNIQUE: Magnetic resonance imaging (MRI) of the lumbar spine was performed without intravenous con trast. COMPARISON: Lumbar spine MRI 12/21/2021 FINDINGS: There is 6 degrees levocurvature of thoracolumbar spine. Vertebral body heights are normal. There are changes of anterior and posterior fusion procedures from L4 to S1 with interbody devices a nd pedicle screws. The distal spinal cord signal intensity is normal. The conus medullaris is at L1. The following disc levels are specifically discussed: L1-L2: There is a central protrusion. There is mild bilateral facet joint osteoarthritis. There is no neural foraminal stenosis. There is mild central canal stenosis. L2-L3: There is a central protrusion. There is mild bilateral facet joint osteoarthritis. There is no neural foraminal stenosis. There is mild central canal stenosis. L3-L4: The disc is bulging. There is severe bilateral facet joint osteoarthritis. There is moderate r ight and mild left neural foraminal stenosis. There is mild central canal stenosis. L4-L5: There is mild bilateral facet joint hypertrophy. There is moderate right and mild left neural foraminal stenosis. There is no central canal stenosis. There is posterior decompression. L5-S1: There is moderate left facet joint osteoarthritis. There is moderate right and mild left neura l foraminal stenosis. There is no central canal stenosis. There is posterior decompression. IMPRESSION: 1. Moderate lumbar spondylosis, stable from 12/21/2021. 2. Anterior and posterior fusion procedures from L4 to S1. Reviewed, dictated and finalized at location A. F OPHTHALMIC TECHNICIAN
--- NOTE | ~2023-01-21 | MR_ITS ---
EXAMINATION: MR thoracic spine wo con DATE: 01/21/2023 11:18 INDICATION: Chronic low back pain. Bilateral leg pain. TECHNIQUE: Magnetic resonance imaging (MRI) of the thoracic spine was performed without intravenous c ontrast. COMPARISON: Thoracic spine MRI 12/21/2021 FINDINGS: There is kyphosis of cervical spine. There is developmental anterior and posterior fusion a t T1-T2. Vertebral body heights are normal. There is mildly decreased disc height at T7-T8 and T8-T9. The discs do not extend beyond the endplate margins in the thoracic spine. There is multilevel mild facet joint osteoarthritis. There is moderate facet joint osteoarthritis bilaterally at T2-T3. On the right, there is mild neural foraminal stenosis at T2-T3. The spinal cord signal intensity is normal. The conus medullaris is at L1. IMPRESSION: 1. Mild thoracic spondylosis. 2. Developmental anterior and posterior fusion at T1-T2. Reviewed, dictated and finalized at location A. ER
== END 2023-01-21 09:31 ==
PROVIDERS: PCP Internal Medicine; Visit Provider Nurse Practitioner Family
DX: M96.1 Postlaminectomy syndrome, not elsewhere classified (principal); M47.894 Other spondylosis, thoracic region; Z98.1 Arthrodesis status; M47.896 Other spondylosis, lumbar region
CPT/HCPCS: 72146; 72148

== ENCOUNTER 2023-04-18 10:06 | Outpatient (CLI) | payer BC, SELFPAY ==
[2023-04-18 21:13] LABS: Basophils Absolute Auto 0.1 K/mm3 (0.0-0.1); Basophils Percent Auto 1.2 % (0.2-1.2); Eosinophils Absolute Auto 0.1 K/mm3 (0-0.3); Eosinophils Percent Auto 1.5 % (0-4.4); Hematocrit 56.8 % (42.0-52.0); Hemoglobin 18.3 g/dL (14.0-18.0); Immature Granulocyte Absolute 0.02 K/mm3 (0.00-0.031); Immature Granulocyte Percent A 0.3 % (0-0.5); Lymphocytes Absolute Auto 1.31 K/mm3 (0.9-3.2); Lymphocytes Percent Auto 20.2 % (18.3-44.2); Mean Corpuscular HGB Conc 32.2 g/dl (32-36); Mean Corpuscular Hemoglobin 30.3 pg (26-34); Mean Platelet Volume 10.1 fl (7.4-10.4); Monocytes Absolute Auto 0.8 K/mm3 (0.1-0.6); Monocytes Percent Auto 12.2 % (2.6-8.5); Neutrophils Absolute Auto 4.2 K/mm3 (1.3-6.7); Neutrophils Percent Auto 64.6 % (45.5-73.1); Platelet Count Result 354 k/mm3 (150-375); Red Blood Count 6.04 M/mm3 (4.6-6.20); Red Cell Distribution Width 12.8 % (11.5-14.5); White Blood Count 6.5 K/mm3 (4.5-10.0)
[2023-04-18 21:41] LABS: Prostate Specific Antigen 2.1 ng/mL (< OR = 4.0)
[2023-04-18 22:08] LABS: Alanine Aminotransferase 27 U/L (6-50); Albumin Level 4.6 g/dL (3.5-5.1); Alkaline Phosphatase 59 U/L (38-126); Anion Gap 8 mmol/L (8-16); Aspartate Amino Transferase 52 U/L (17-59); Bilirubin,Total 0.8 mg/dL (0.2-1.3); Blood Urea Nitrogen 17 mg/dL (9-20); Calcium 9.5 mg/dL (8.4-10.2); Carbon Dioxide 33 mmol/L (22-30); Chloride 97 mmol/L (98-107); Estimated Glomerular Filt Rate > 60; Glucose 39 mg/dL (65-110); Potassium 3.9 mmol/L (3.4-5.0); Sodium 138 mmol/L (137-145)
[2023-04-23 12:58] LABS: Testosterone Free 272.2 pg/mL (35.0-155.0); Testosterone Total 997 ng/dL (250-1100)
== END 2023-04-18 10:07 | disposition home or self-care (01) ==
LOC: ANHGOSHLAB 10:07
PROVIDERS: PCP Internal Medicine; Visit Provider Internal Medicine
DX: D75.1 Secondary polycythemia (principal); Z79.890 Hormone replacement therapy
CPT/HCPCS: 36415; 80053; 84153; 84402; 84403; 85025

== ENCOUNTER 2023-07-03 12:04 | Outpatient (CLI) | payer OTHER, SELFPAY ==
--- NOTE | 2023-07-03 | ECG_ITS ---
Measurements Intervals [place] Rate: 78 P: 58 AL: 143 QRS: -30 QRSD: 93 T: 27 QT: 337 QTc: 385 Interpretive Statements SINUS RHYTHM BORDERLINE LEFT AXIS DEVIATION [QRS AXIS < -20] OTHERWISE UNREMARKABLE ECG COMPARED TO ECG 01/11/2020 18:51:31 SINUS RHYTHM REPLACES ATRIAL FIBRILLATION Electronically Signed On 07-03-2023 14:10:51 CDT by Wilder Barker M.D.
[2023-07-03 12:47] LABS: Basophils Absolute Auto 0.1 K/mm3 (0.0-0.1); Basophils Percent Auto 1.2 % (0.2-1.2); Eosinophils Absolute Auto 0.1 K/mm3 (0-0.3); Eosinophils Percent Auto 1.7 % (0-4.4); Hematocrit 52.5 % (42.0-52.0); Hemoglobin 17.8 g/dL (14.0-18.0); Immature Granulocyte Absolute 0.01 K/mm3 (0.00-0.031); Immature Granulocyte Percent A 0.2 % (0-0.5); Lymphocytes Absolute Auto 1.34 K/mm3 (0.9-3.2); Lymphocytes Percent Auto 20.8 % (18.3-44.2); Mean Corpuscular HGB Conc 33.9 g/dl (32-36); Mean Corpuscular Hemoglobin 30.6 pg (26-34); Mean Corpuscular Volume 90.4 fl (80-100); Mean Platelet Volume 10.2 fl (7.4-10.4); Monocytes Absolute Auto 0.7 K/mm3 (0.1-0.6); Monocytes Percent Auto 10.4 % (2.6-8.5); Neutrophils Absolute Auto 4.2 K/mm3 (1.3-6.7); Neutrophils Percent Auto 65.7 % (45.5-73.1); Platelet Count Result 350 k/mm3 (150-375); Red Blood Count 5.81 M/mm3 (4.6-6.20); Red Cell Distribution Width 12.1 % (11.5-14.5); White Blood Count 6.4 K/mm3 (4.5-10.0)
[2023-07-03 12:57] LABS: Alanine Aminotransferase 28 U/L (6-50); Albumin Level 4.7 g/dL (3.5-5.1); Alkaline Phosphatase 55 U/L (38-126); Anion Gap 5 mmol/L (8-16); Aspartate Amino Transferase 26 U/L (17-59); Bilirubin,Total 0.4 mg/dL (0.2-1.3); Blood Urea Nitrogen 12 mg/dL (9-20); CRP 0.6 mg/dL (<1.0); Calcium 9.4 mg/dL (8.4-10.2); Carbon Dioxide 35 mmol/L (22-30); Chloride 98 mmol/L (98-107); Estimated Glomerular Filt Rate > 60; Glucose 155 mg/dL (65-110); Potassium 3.8 mmol/L (3.4-5.0); Sodium 138 mmol/L (137-145)
[2023-07-03 13:42] LABS: Appearance Urine Clear (Clear); Bacteria Urine None Seen /hpf; Bilirubin Urine Negative (Negative); Blood Urine Negative (Negative); Color Urine Yellow (Yellow); Glucose Urine UA Negative (Negative); Ketones Urine Trace mg/dL (Negative); Leukocyte Esterase Ur Trace LEU/UL (Negative); Nitrate Urine Negative (Negative); Non Pathogenic Casts 0-2; Protein Urine Negative (Negative); RBC Urine 0-2 /hpf (0-2); Specific Grav Ur 1.025 (1.001-1.035); Squamous Epithelial Cell Urine None seen /hpf (Few); Urobilinogen Urine 0.2 mg/dL (<2.0); WBC Urine 0-5 /hpf; pH Urine 5.5 (5.0-9.0)
[2023-07-03 13:45] LABS: Add Urine Microscopic? YES
[2023-07-03 13:48] LABS: Erythrocyte Sedimentation Rate 1 mm/hr (0-20)
== END 2023-07-03 12:05 | disposition home or self-care (01) ==
LOC: ANHLAB 12:06
PROVIDERS: PCP Internal Medicine; Visit Provider Pain Medicine Pain Medicine
DX: Z01.818 Encounter for other preprocedural examination (principal)
CPT/HCPCS: 36415; 80053; 81001; 85025; 85652; 86140; 93005

== ENCOUNTER 2023-07-28 09:19 | Outpatient (CLI) | payer BC, SELFPAY ==
[2023-07-28 12:03] LABS: Basophils Absolute Auto 0.1 K/mm3 (0.0-0.1); Basophils Percent Auto 1.2 % (0.2-1.2); Eosinophils Absolute Auto 0.1 K/mm3 (0-0.3); Eosinophils Percent Auto 1.8 % (0-4.4); Hematocrit 54.3 % (42.0-52.0); Immature Granulocyte Absolute 0.01 K/mm3 (0.00-0.031); Immature Granulocyte Percent A 0.1 % (0-0.5); Lymphocytes Absolute Auto 1.58 K/mm3 (0.9-3.2); Lymphocytes Percent Auto 23.3 % (18.3-44.2); Mean Corpuscular HGB Conc 33.1 g/dl (32-36); Mean Corpuscular Hemoglobin 30.8 pg (26-34); Mean Platelet Volume 10.4 fl (7.4-10.4); Monocytes Absolute Auto 0.7 K/mm3 (0.1-0.6); Monocytes Percent Auto 10.3 % (2.6-8.5); Neutrophils Absolute Auto 4.3 K/mm3 (1.3-6.7); Neutrophils Percent Auto 63.3 % (45.5-73.1); Platelet Count Result 344 k/mm3 (150-375); Red Blood Count 5.84 M/mm3 (4.6-6.20); Red Cell Distribution Width 12.3 % (11.5-14.5); White Blood Count 6.8 K/mm3 (4.5-10.0)
[2023-07-28 12:06] LABS: Appearance Urine Clear (Clear); Bilirubin Urine Negative (Negative); Blood Urine Negative (Negative); Color Urine Yellow (Yellow); Glucose Urine UA Negative (Negative); Ketones Urine Negative (Negative); Leukocyte Esterase Ur Negative LEU/UL (NEGATIVE); Nitrate Urine Negative (Negative); Protein Urine Negative (Negative); Specific Grav Ur 1.031 (1.001-1.035); Urobilinogen Urine 0.2 mg/dL (<2.0)
[2023-07-28 12:10] LABS: Add Urine Microscopic? NO
[2023-07-28 12:27] LABS: Alanine Aminotransferase 32 U/L (6-50); Albumin Level 4.7 g/dL (3.5-5.1); Alkaline Phosphatase 66 U/L (38-126); Anion Gap 7 mmol/L (8-16); Aspartate Amino Transferase 61 U/L (17-59); Bilirubin,Total 0.6 mg/dL (0.2-1.3); Blood Urea Nitrogen 20 mg/dL (9-20); CRP < 0.5 mg/dL (<1.0); Calcium 9.9 mg/dL (8.4-10.2); Carbon Dioxide 36 mmol/L (22-30); Chloride 98 mmol/L (98-107); Estimated Glomerular Filt Rate > 60; Glucose 86 mg/dL (65-110); Potassium 3.9 mmol/L (3.4-5.0); Sodium 141 mmol/L (137-145)
[2023-07-28 12:51] LABS: Erythrocyte Sedimentation Rate 3 mm/hr (0-20)
== END 2023-07-28 09:20 | disposition home or self-care (01) ==
LOC: ANHGOSHLAB 09:24
PROVIDERS: PCP Internal Medicine
DX: Z01.818 Encounter for other preprocedural examination (principal)
CPT/HCPCS: 36415; 80053; 81003; 85025; 85652; 86140; 87077; 87086; 87186

== ENCOUNTER 2024-04-29 09:30 | Outpatient (CLI) | payer BC, SELFPAY ==
[2024-04-29 12:50] LABS: Basophils Absolute Auto 0.1 K/mm3 (0.0-0.1); Basophils Percent Auto 1.8 % (0.2-1.2); Eosinophils Absolute Auto 0.2 K/mm3 (0-0.3); Eosinophils Percent Auto 3.9 % (0-4.4); Hemoglobin 16.3 g/dL (14.0-18.0); Immature Granulocyte Absolute 0.02 K/mm3 (0.00-0.031); Immature Granulocyte Percent A 0.4 % (0-0.5); Lymphocytes Absolute Auto 0.99 K/mm3 (0.9-3.2); Lymphocytes Percent Auto 17.5 % (18.3-44.2); Mean Corpuscular HGB Conc 32.6 g/dl (32-36); Mean Corpuscular Hemoglobin 30.2 pg (26-34); Mean Corpuscular Volume 92.6 fl (80-100); Mean Platelet Volume 10.7 fl (7.4-10.4); Monocytes Absolute Auto 0.5 K/mm3 (0.1-0.6); Monocytes Percent Auto 9.6 % (2.6-8.5); Neutrophils Absolute Auto 3.8 K/mm3 (1.3-6.7); Neutrophils Percent Auto 66.8 % (45.5-73.1); Platelet Count Result 289 k/mm3 (150-375); Red Cell Distribution Width 12.7 % (11.5-14.5); White Blood Count 5.7 K/mm3 (4.5-10.0)
[2024-04-29 19:34] LABS: Alanine Aminotransferase 20 U/L (6-50); Albumin Level 4.5 g/dL (3.5-5.1); Alkaline Phosphatase 55 U/L (38-126); Aspartate Amino Transferase 64 U/L (17-59); Bilirubin,Total 0.7 mg/dL (0.2-1.3); Cholesterol 180 mg/dL (0-200); HDL Direct 39 mg/dL; Triglycerides 102 mg/dL (<150)
[2024-04-29 19:46] LABS: LDL Cholesterol Direct 114 mg/dL
[2024-04-29 20:04] LABS: Prostate Specific Antigen 2.2 ng/mL (< OR = 4.0)
[2024-05-02 12:38] LABS: Testosterone Free 139.7 pg/mL (35.0-155.0); Testosterone Total 540 ng/dL (250-1100)
[2024-05-02 12:49] LABS: Apolipoprotein B 95 mg/dL
== END 2024-04-29 09:31 | disposition home or self-care (01) ==
LOC: ANHGOSHLAB 09:31
PROVIDERS: PCP Nurse Practitioner; Visit Provider Internal Medicine
DX: E11.69 Type 2 diabetes mellitus with other specified complication (principal); E78.5 Hyperlipidemia, unspecified; D75.1 Secondary polycythemia; Z79.890 Hormone replacement therapy
CPT/HCPCS: 36415; 80061; 80076; 82172; 83036; 84153; 84402; 84403; 85025

== ENCOUNTER 2024-06-21 13:56 | Outpatient (CLI) | payer BC, SELFPAY ==
--- NOTE | ~2024-06-21 | US_ITS ---
EXAMINATION: US soft tissue UE RT DATE: 06/21/2024 14:13 INDICATION: R22.9 - Localized swelling, mass and lump, unspecified . TECHNIQUE: Grayscale and Doppler ultrasound images of the right upper extremity were obtained. COMPARISON: None. FINDINGS: The area of clinical concern in the right lateral and posterior forearm was sonographically interrogated, revealing no solid or cystic mass. No abnormal vascularity. IMPRESSION: No sonographic abnormality detected in the area of clinical concern. Reviewed, dictated and finalized at location K.
== END 2024-06-21 13:57 ==
LOC: GOSHIMG 13:57
PROVIDERS: PCP Nurse Practitioner; Visit Provider Nurse Practitioner
DX: R22.31 Localized swelling, mass and lump, right upper limb (principal)
CPT/HCPCS: 76882

== ENCOUNTER 2024-08-07 12:02 | Outpatient (CLI) | payer BC, SELFPAY ==
--- NOTE | ~2024-08-07 | XR_ITS ---
EXAMINATION: XR lumbar spine min 4V DATE: 08/07/2024 12:22 INDICATION: Postlaminectomy syndrome. Severe pain and left leg numbness following palpable pop in the lower back. TECHNIQUE: Anteroposterior and lateral in neutral, flexion and extension views of the lumbar spine, a nd cone-down lateral view of the lumbosacral junction were obtained. COMPARISON: Lumbar spine radiographs dated 03/19/2018 FINDINGS: Again seen are postoperative change of prior L4-S1 is limited anterior and posterior spinal fusion wi th bilateral vertical goyo and pedicle screw fixation and interbody fusion device at both levels. Ther e are associated right-sided facetectomies at L4-L5 and L5-S1. Age-indeterminate fractures of the L4 pedicle screws near the attachment of the vertical rods which are new since the prior study. No abnor mal motion with flexion or extension. Minimal likely physiologic anterior wedging at T12-L2. Unfused disc heights are normal. Spinal stimulator projecting over the right buttock with leads extending int o the posterior aspect of the central canal at T12-L1 and extending cephalad beyond the cephalad kirby in of the [id number]. IMPRESSION: 1. Instrumented L4-S1 anterior and posterior spinal fusion with fracture at the base of the L4 pedicl e screws with no evident abnormal translatory motion on flexion or extension. Reviewed, dictated and finalized at location B. IMPRESSION: 1. Instrumented L4-S1 anterior and posterior spinal fusion with fracture at the base of the L4 pedicle screws with no evident abnormal translatory motion on f lexion or extension.
== END 2024-08-07 12:03 | disposition home or self-care (01) ==
PROVIDERS: PCP Nurse Practitioner Family; Visit Provider Nurse Practitioner Family
DX: M96.1 Postlaminectomy syndrome, not elsewhere classified (principal); M43.26 Fusion of spine, lumbar region; Z98.1 Arthrodesis status
CPT/HCPCS: 72110

== ENCOUNTER 2024-11-18 15:10 | Outpatient (CLI) | payer BC, SELFPAY ==
[2024-11-18 20:02] LABS: Basophils Absolute Auto 0.1 K/mm3 (0.0-0.1); Basophils Percent Auto 0.9 % (0.2-1.2); Eosinophils Absolute Auto 0.2 K/mm3 (0-0.3); Eosinophils Percent Auto 1.6 % (0-4.4); Hemoglobin 15.3 g/dL (14.0-18.0); Immature Granulocyte Absolute 0.05 K/mm3 (0.00-0.031); Immature Granulocyte Percent A 0.5 % (0-0.5); Lymphocytes Absolute Auto 1.03 K/mm3 (0.9-3.2); Lymphocytes Percent Auto 10.4 % (18.3-44.2); Mean Corpuscular HGB Conc 31.2 g/dl (32-36); Mean Corpuscular Hemoglobin 27.7 pg (26-34); Mean Corpuscular Volume 88.6 fl (80-100); Mean Platelet Volume 10.7 fl (7.4-10.4); Monocytes Absolute Auto 0.9 K/mm3 (0.1-0.6); Monocytes Percent Auto 8.8 % (2.6-8.5); Neutrophils Absolute Auto 7.7 K/mm3 (1.3-6.7); Neutrophils Percent Auto 77.8 % (45.5-73.1); Platelet Count Result 338 k/mm3 (150-375); Red Blood Count 5.53 M/mm3 (4.6-6.20); Red Cell Distribution Width 13.4 % (11.5-14.5)
[2024-11-18 20:10] LABS: Alanine Aminotransferase 23 U/L (6-50); Albumin Level 4.6 g/dL (3.5-5.1); Alkaline Phosphatase 96 U/L (38-126); Anion Gap 3 mmol/L (4-12); Aspartate Amino Transferase 36 U/L (17-59); Bilirubin,Total 0.5 mg/dL (0.2-1.3); Blood Urea Nitrogen 11 mg/dL (9-20); Calcium 9.8 mg/dL (8.4-10.2); Carbon Dioxide 34 mmol/L (22-30); Chloride 103 mmol/L (98-107); Estimated Glomerular Filt Rate > 60; Glucose 105 mg/dL (65-110); Potassium 4.6 mmol/L (3.4-5.0); Sodium 140 mmol/L (137-145)
[2024-11-18 20:53] LABS: Hemoglobin A1C 6.3 % (<5.7)
[2024-11-26 12:43] LABS: Testosterone Free 193.2 pg/mL (35.0-155.0); Testosterone Total 742 ng/dL (250-1100)
== END 2024-11-18 15:11 | disposition home or self-care (01) ==
LOC: ANHGOSHLAB 15:12
PROVIDERS: PCP Internal Medicine; Visit Provider Nurse Practitioner
DX: E29.1 Testicular hypofunction (principal); E11.9 Type 2 diabetes mellitus without complications; Z79.890 Hormone replacement therapy
CPT/HCPCS: 36415; 80053; 83036; 84402; 84403; 85025

== ENCOUNTER 2025-08-27 09:13 | Outpatient (CLI) | payer BC, SELFPAY ==
--- OUTSIDE RECORDS SUMMARY | 2025-08-27 09:41 | XMS_ITS | Clinical Summary ---
Author Organization [facility] Address [address] [place] [address] Care Team Providers Care Electron Beam Photo Mask Maker Name Role Phone Esau Woodall Primary Care Provider Allergies Active Allergy Reactions Criticality Noted Date Comments Adhesive Tape-Silicones Other (See Comments) Skin sloughs upon removal Amitriptyline Other (See Comments) 01/15/2016 Made the heart 'Flutter Medications acetaminophen (TYLENOL) 500 mg tablet Take 500 mg by mouth every 6 hours as needed. Active aspirin (BEE) 325 mg tablet Take 325 mg by mouth daily. Active Active Problems Problem Noted Date Diagnosed Date Left lumbar radiculopathy 09/02/2015 Tobacco use 09/02/2015 Family History Medical History Relation Name Comments Arthritis-osteo Father Diabetes Father Heart Disease Father Hypertension Father Diabetes Maternal Grandmother Diabetes Mother Heart Disease Paternal Grandfather Relation Name Status Comments Father Maternal Grandmother Mother Paternal Grandfather Social History Tobacco Use Types Packs/Day Years Used Date Smoking Tobacco: Every Day E-Cigarette/M ist Inhalation Device Smokeless Tobacco: Never Tobacco Cessation:Ready to Q uit: No; Counseling Given: No Alcohol Use Standard Drinks/Week Comments Yes 2 (1 standard drink = 0.6 oz pur e alcohol) Sex and Gender Information Value Date Recorded Sex Assigned at Not on file Legal Sex Male 3:50 PM CDT Gender Identity Not on file Sexual Orientation Not on file Last Filed Vital Signs Vital Sign Reading Time Taken Comments Blood Pressure 138/80 01/15/2016 9:57 AM COMMUNICATIONS SUPERVISOR Pulse 87 12/22/2015 9:58 AM COMMUNICATIONS SUPERVISOR Temperature - - Respiratory Rate - - Oxygen Saturation - - Inhaled Oxygen Concentration - - Weight 108.9 kg (240 lb) 01/15/2016 9:57 AM COMMUNICATIONS SUPERVISOR Height 188 cm (6' 2) 01/15/2016 9:57 AM COMMUNICATIONS SUPERVISOR Body Mass Index 30.81 01/15/2016 9:57 AM COMMUNICATIONS SUPERVISOR Plan of Treatment Health Maintenance Due Date Last Done Comments DTAP/TDAP/TD VACCINES (1 - Tdap) 1999 HEPATITIS B VACCINES (1 of 3 - 19+ 3-dose series) 12/29 HPV VACCINES (1 - 3-dose SCDM series) 2007 COLORECTAL SCREENING 2025 Colorectal Cancer Screening 2025 FIT-DNA Q 3 years 2025 FIT/FOBT Q 1 year 2025 Flex Sig/CT Colonography Q 5 years 2025 INFLUENZA VACCINE (#1) 2025 Care Teams Electron Beam Photo Mask Maker Relationship Specialty Start Date End Date Esau Woodall DO PCP - General Internal Medicine 01/15/16
--- OUTSIDE RECORDS SUMMARY | 2025-08-27 09:41 | XMS_ITS | Clinical Summary ---
Author Organization [facility] Address [address] [place] [address] Care Team Providers Care Nickel Plant Operator Name Role Phone Esau Woodall DO Primary Care Provider [phone]- [phone] Allergies No known active allergies Medications cholecalciferol (VITAMIN D-3) 1,000 unit Take 1 tablet/capsule (1,000 Units total) by mouth daily Active pantoprazole DR (PROTONIX) 40 mg EC tablet Take 1 tablet (40 mg total) by mouth daily 06/19/20 21 Active atorvastatin (LIPITOR) 10 mg tablet Take 1 tablet (10 mg total) by mouth nightly at bedtime 05/02/20 24 Active busPIRone (BUSPAR) 15 mg tablet Take 1 tablet (15 mg total) by mouth 3 (three) times a day as needed Active metFORMIN (GLUCOPHAGE) 1,000 mg tablet Take 0.5 tablets (500 mg total) by mouth 2 (two) times a day 08/05/20 24 Active cyclobenzaprine (FLEXERIL) 5 mg tabletIndication s:Muscle Spasm Take 1 tablet (5 mg total) by mouth 3 (three) times a day as needed for muscle spasms 30 tablet 08/17/20 24 Active acetaminophen 500 mg capsuleIndicatio ns:Pain Take 2 capsules (1,000 mg total) by mouth every 6 (six) hours as needed for pain Do not exceed 4,000 mg in 24 hours 08/17/[address] (Cymbalta) 60 mg capsule Take 2 capsules (120 mg total) by mouth daily 60 capsule 08/18/20 24 025 Active pregabalin (LYRICA) 75 mg capsule Take 1 capsule (75 mg total) by mouth 2 (two) times a day for 7 days 14 capsule 08/17/20 24 025 Active Additional Information Patient not taking.Reported on 11/12/2024 testosterone cypionate (DEPO-TESTOTERON E) 200 mg/mL injection Inject into the muscle as instructed Do not resume taking until verifying with Dr. Young's office. 08/17/20 24 Active BD Integra Syringe 3 mL 21 gauge x 1 /2 syringe USE TO INJECT TESTOSTERONE EVERY WEEK 08/07/20 Active cefadroxil (DURICEF) 500 mg capsuleIndicatio ns:Bone/Joint Infection Take 1 capsule (500 mg total) by mouth 2 (two) times a day 60 capsule 11 10/08/20 24 025 Active omeprazole (PriLOSEC) 20 mg capsule Take 1 capsule (20 mg total) by mouth daily as needed Active oxyCODONE-acetam inophen (PERCOCET) 7.5-325 mg per tabletIndication s:Pain Take 1 tablet by mouth every 6 (six) hours as needed for pain Active lisinopriL (PRINIVIL,ZESTRI L) 20 mg tabletIndication s:Essential hypertension TAKE 1 TABLET(20 MG) BY MOUTH DAILY 90 tablet 2 02/25/20 25 Active sildenafiL (VIAGRA) 25 mg tablet TAKE 1 TABLET BY MOUTH ONCE DAILY NEEDED 30 MINUTES TO 4 HOURS BEFORE SEXUAL ACTIVITY. MAX 1 TABLET PER DAY. 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 Patient reports he has a long history of back issues and underwent PSF L4-S1 with TLIF (2017 OSH). However for the last few years he has been having worsening pain and in Jul 2024, heard a pop in his back which prompted him to come to [place] ED. On 08/14/2024 he underwent L4-S1 revision of broken screws, L4-L5 nonunion revision. On 08/17, his drain was removed and patient discharged home. On 08/19/24 OR bacterial cultures resulted positive for rare p.acnes. 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 MRI 08/12/2024 (prior to surgery): Postsurgical changes anterior and posterior fusion L4-S1 and L5-S1 right facetectomy. Multilevel jdve-zh-egicunlk degenerative changes, as detailed above. These findings are not significantly changed relative to comparison MRI dated 01/21/2023. No ESR/CRP prior to surgery No culture results/pathology prior to surgery 44 y/o immunocompetent patient with h/o PSF L4-S1 with TLIF in 2017. Post op recovered well however had chronic pain and found to have L4-S1 broken screws and L4-L5 non union. He underwent uncomplicated revision of these on 08/[address] Christine. Intra-op no findings of purulence, dehiscence, necrosis however non union was cultured. Bacterial culture positive for rare p.acnes. On discussion with micro lab, one colony isolated. However not thought to be contaminant. At this time, there is possibility that p.acnes infection was the reason for the prior failure of fracture union as well as mechanical failure. However MRI/local exam fidnings/intra-op findings not consistent with overt infection. This can be sometimes seen in p.acnes infection due to slow growth of organism. However given recent revision surgery, prudent to start patient on appropriate antimicrobials to prevent recurrence of episode. Discussed extensively with ortho spine surgeon and the non union is thought to be due to the prior infection and for preserving the hardware, it is important to continue antibiotics. Agent: Cefadroxil 500 mg BID ORGANISM: p. Acnes Site of infection: Lumbar spine Hardware: Yes PLAN - Labs today to assess any adverse effects from antibiotics - Patient is hemodynamically stable and doing well post op with no s/s/o infection, he continued p.o Cefadroxil 500 mg BID for 6 weeks with monitoring with an end date Nov 20 2024. After that he continued same for suppression in the presence of hardware. - today we discussed at length the short term and retirement risks and benefits and made a shared decision making to continue suppression. - He has a small nodule under the incision which is non tender, with no drainage and opening that he will be seeing spine surgery for. - No issues with meds today, no nausea/vomiting/diarrhea/rash. No fever/chills/night sweats/change in appetite. - No missed antibiotic doses. Discussed rationale for treatment and s/s/o adverse effects to look out for. Cefadroxil can be associated with fevers, neutropenia, thrombocytopenia, hepatitis. CBC and CMP should be monitored while on this medication. Infection of lumbar spine 10/08/2024 Post-operative pain 08/29/2024 Fusion of spine of lumbar region 08/27/2024 Draining postoperative wound 08/23/2024 Constipation 08/13/2024 Assessment & Plan (08/13/2024 12:47 PM CDT): Likely 2/2 opioid use - on daily miralax - will add senna/docusate today Acute midline low back pain without sciatica spinal fixation hardare failure 08/10/2024 Assessment & Plan (08/14/2024 1:27 PM CDT): Bilat pedicle screw fractures at L4 - CT and MRI done per ortho spine service for possible surgical planning - patient continues to have significant pain requiring IV opioid and oral opioid therapy - continue Pain control- IV morphine, cont oxy IR, flexeril. - added Lyrica and Lidocaine patch given radicular symptoms on 08/13 - plan for OR today with ortho spine - schedule high dose tylenol 1000 TID Diabetes mellitus type II, controlled 08/10/2024 Assessment & Plan (08/13/2024 12:46 PM CDT): - hold metformin -SSI while admitted HTN (hypertension) 08/10/2024 Assessment & Plan (08/12/2024 2:00 PM CDT): Holding lisinopril, can resume if no imminent OR Tobacco abuse 07/03/2020 Hypertension associated with diabetes 12/10/2018 PAF (paroxysmal atrial fibrillation) 11/30/2017 Assessment & Plan (08/13/2024 12:45 PM CDT): Chronic, currently in Sinus. Holding asa in case of surgical spinal procedure. Pre-operative cardiovascular examination 018 LUIS FERNANDO (obstructive sleep apnea) 11/30/2017 S/P ablation of atrial fibrillation 11/30/2017 Essential hypertension 11/30/2017 Depression 02/06/2017 Chronic pain 07/29/2015 Lumbar radiculopathy 07/29/2015 Postlaminectomy syndrome of lumbar region 2014 Lumbago 07/24/2015 Fatigue 07/24/2015 Anxiety 07/24/2015 Irritable mood 07/24/2015 Diarrhea 07/24/2015 History of spinal surgery 07/24/2015 Overview (03/08/2018): Description: micro discectomy L5 in 02/08 Chest pain 04/12/2014 Overview (03/02/2017): Chest pain Pain in extremity 09/23/2013 Smokes tobacco daily 07/26/2012 Overview (03/08/2018): Description: e-cigs with nicotine 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 Knee pain 05/14/2012 Resolved Problems Problem Noted Date Diagnosed Date Resolved Date Chronic anticoagulation 08/05/20212 11/2022 Encounters Date Type Department Care Team Description 08/19/2025 10:30 AM CDT Office Visit [facility] Medicine Orthopaedic Surgery [address] [place] [address] [place] [address] Allan Young MD Fusion of spine of lumbar region (Primary Dx) 08/19/2025 10:00 AM CDT - 08/19/2025 11:59 PM CDT Hospital Encounter [facility] [address] [place] [address] Allan Young MD Fusion of spine of lumbar region Discharge Disposition: Discharge to home or self care 08/19/2025 Telephone [facility] Medicine Orthopaedic Surgery [address] [place] [address] [place] [address] Allan Young MD from Last 3 Months Immunizations Immunization Administration Dates Next Due Moderna SARS-CoV-2 Monovalent Vaccination (12+ Y RS) 02/06/2021,01/08/2021 Surgical History Surgery Date Site/Laterality Comments EPIDURAL INJECTION LUMBOSACRAL 03/04/2014 N/A SPINAL FUSION Medical History Medical History Date Comments Hx Other Medical Arrhythmias Atrial fibrillation (HCC) Hypertension Family History Medical History Relation Name Comments Coronary artery disease Sister 2 Christianne nary Artery Bypass Graft; Relation Name Status Comments Sister 1 Alive Sister 2 Social History Tobacco Use Types Packs/Day Years Used Date Smoking Tobacco: Former Cigarettes Q uit: 11/30/2013 E-cigarettes Smokeless Tobacco: Never Tobacco Cessation:Counseling Given: Not Answered Comments:Smoking History Packs/day: 0.5 Packs Alcohol Use Standard Drinks/Week Comments No 0 (1 standard drink = 0.6 oz pur e alcohol) AUDIT-C Answer Date Recorded Q1: How often do you have a drink containing alc ohol? Monthly or less 11/12/2024 Q2: How many drinks containi ng alcohol do you have on a typical day when you are drinking? 1 or 2 11/12/2024 Q3: How often do you have si x or more drinks on one occasion? Never 11/12/2024 Personal Safety Answer Date Recorded Have you ever been in or are you currently in a harmful physical or emotional relationship or is someone making you feel afraid or unsafe? Denies 08/14/2024 Sex and Gender Information Value Date Recorded Sex Assigned at Not on file Legal Sex Male 12:29 PM PRODUCT DEVELOPMENT SPECIALIST Gender Identity Not on file Sexual Orientation Not on file Obstetrics History Last Filed Vital Signs Vital Sign Reading Time Taken Comments Blood Pressure 129/83 02/24/2025 1:31 PM CDT Pulse 87 02/24/2025 1:31 PM CDT Temperature 36.5 C (97.7 F) 02/24/2025 1:31 PM CDT Respiratory Rate 17 08/17/2024 4:36 PM CDT Oxygen Saturation 98% 02/24/2025 1:31 PM CDT Inhaled Oxygen Concentration - - Weight 103 kg (227 lb) 08/19/2025 11:24 AM CDT Height 185.2 cm (6' 0.9) 08/19/2025 11:24 AM CD T Body Mass Index 30.03 08/19/2025 11:24 AM CDT Plan of Treatment Health Maintenance Due Date Last Done Comments Albumin Creatinine Ratio, Urine 1980 Colon Cancer Screening-Colonoscopy 1980 Depression Screening 1980 Hemoglobin A1C 1980 Hepatitis C Screening 1980 Dilated Eye Exam 1980 Foot Exam 1980 Varicella Vaccines (1 of 2 - 13+ 2-dose series) 1993 Hepatitis B Screening 1998 Regular Well Visit/Exam 18-64 1998 Pneumococcal vaccine <65 (1 of 2 - PCV) 1999 HPV Vaccines (1 - 3-dose SCD M series) 2007 DTaP/Tdap/Td Vaccine (3 - Td or Tdap) 01/03/2023 01/03/2013, 04/01/2011 Lipid Panel 10/17/2024 10/17/2023, 07/29, 03/05/2021, Additional history exists Covid-19 Vaccine (3 - 2024-2 6 season) 2025 02/06/2021, 01/08/2021 Influenza Vaccine (#1) 2025 , 09/15/2021, 08/24/2020, Additional history exists eGFR 02/24/2026 02/24/2025, 10/28, 10/02/2024, Additional history exists Medical Devices Implanted Type Area Shank Stitcher Device Identifier Shelf Expiration Date Model / Serial / Lot [employer] [id number] System 6-12fr Mvp Venous Closure Vascade - [id number] - [id number] Implanted:Qty: 1 on 06/18/2021 by Koko Joy MD at [facility] Collagen [employer] 04/12/2023 [id number]-[id number] [id number] / [id number] / [id number] [employer] [id number] Vascade 6/7fr Bioabsorbable Vascular System Compression Collagen - [id number] - [id number] Implanted:Qty: 1 on 06/18/2021 by Koko Joy MD at [facility] Collagen [employer] 03/09/2023 [id number] / [id number] / [id number] [employer] [id number] System 6-12fr Mvp Venous Closure Vascade - [id number] - [id number] Implanted:Qty: 1 on 06/18/2021 by Koko Joy MD at [facility] Collagen [employer] 04/12/2023 800-612C-1 0U / [id number] / [id number] [employer] [id number] System 6-12fr Mvp Venous Closure Vascade - [id number] - [id number] Implanted:Qty: 1 on 06/18/2021 by Koko Joy MD at [facility] Collagen [employer] 04/12/2023 [id number]-1 0U / [id number] / [id number] Octrode Stimulation Lead 60 Cm (3186) Lead Back Brooks 3186 / / Octrode Stimulation Lead, 90cm (3189) Lead Back Brooks 3189 / / Spinal Cord Stimulator Spinal Cord Stimulator Spine Lumbar Brooks ETERNA (98531) / [id number] / Depuy Synthes Spine Substitute Bone Graft Fibergraft Large Bioactive Glass Putty [id number] - [id number] Implanted:Qty: 1 on 08/14/2024 by Allan Young MD at [facility] N/A: Lumbar-S acral Spine Depuy Synthes Spine [id number] 02/14/2027 [id number] / / [id number] Depuy Synthes Spine Expedium 8mm 45mm Fix Spine Cortical Screw Bone Titanium 5.5mm [id number] - [id number] Implanted:Qty: 3 on 08/14/2024 by Allan Young MD at [facility] N/A: Lumbar-S acral Spine Depuy Synthes Spine [id number] / / Depuy Synthes Spine Expedium 8mm 50mm Fix Spine Cortical Screw Bone Titanium 5.5mm [id number] - [id number] Implanted:Qty: 3 on 08/14/2024 by Allan Young MD at [facility] N/A: Lumbar-S acral Spine Depuy Synthes Spine [id number] / / Depuy Synthes Spine Expedium 1 Inner Monoaxial Spine Screw Set Titanium [id number] - [id number] Implanted:Qty: 6 on 08/14/2024 by Allan Young MD at [facility] N/A: Lumbar-S acral Spine Depuy Synthes Spine [id number] / / Depuy Synthes Spine Expedium 5.5mm 75mm Line Prebent Roland Spinal Titanium Nonsterile [id number] - [id number] Implanted:Qty: 2 on 08/14/2024 by Allan Young MD at [facility] N/A: Lumbar-S acral Spine Depuy Synthes Spine [id number] / / Med[employer] Kit Graft Bone Sponge Xlg Infuse 8cc Granules [id number] - [id number] Implanted:Qty: 1 on 08/14/2024 by Allan Young MD at [facility] [employer] [id number] 05/27/2025 [id number] / / [id number] Allosource Crushed Chip Frozen Graft 60ml Bone Cancellous [id number] - [id number] Implanted:Qty: 1 on 08/14/2024 by Allan Young MD at [facility] N/A: Lumbar-S acral Spine Allosource 01/23/2029 [id number] / / [id number] Procedures Procedure Name Priority Date/Time Associated Diagnosis Comments XR SPINE LUMBAR ROUTINE Schedule Routine, Read Routine (OP Routine) 08/19/2025 10:46 AM CDT Fusion of spine of lumbar region EGFR Routine 02/24/2025 2:04 PM CDT Infection of lumbar spine (HCC) Infection due to Cutibacterium species POCT LIPID PANEL Routine 10/17/2023 8:24 AM PRODUCT DEVELOPMENT SPECIALIST Lipid screening from Last 3 Months or Most Recently Relevant to Health Maintenance Results * XR Spine Lumbar 4 or More Views (08/19/2025 10:46 AM CDT) Anatomical Region Laterality Modality L-spine N/A Computed Radiogr aphy 08/19/2025 11:2 2 AM CDT Impressions 08/19/2025 11:22 AM CDT Unchanged combined instrumented fusion L4-S1. Electronically signed by: Jeffrey Brandt M.D. Narrative 08/19/2025 11:22 AM CDT EXAMINATION: XR SPINE LUMBAR 4 OR MORE VIEWS HISTORY: Back pain FINDINGS: 6 views of the lumbar spine were performed with comparison made to 02/11/2025. Spinal cord stimulator is redemonstrated. There is combined instrumented fusion L4-S1. Nonfused disc heights appear normal. Instrumentation appears intact. There is no definite motion of the fused segments with flexion and extension. Procedure Note Jeffrey Brandt MD PhD - 08/19/2025 EXAMINATION: XR SPINE LUMBAR 4 OR MORE VIEWS HISTORY: Back pain FINDINGS: 6 views of the lumbar spine were performed with comparison made to 02/11/2025. Spinal cord stimulator is redemonstrated. There is combined instrumented fusion L4-S1. Nonfused disc heights appear normal. Instrumentation appears intact. There is no definite motion of the fused segments with flexion and extension. IMPRESSION: Unchanged combined instrumented fusion L4-S1. Electronically signed by: Jeffrey Brandt M.D. us Allan Young MD IMG XR PROCEDURES Fi nal Result * eGFR (02/24/2025 2:04 PM CDT) eGFR >90 >=60 mL/min/1. 73 m2 Comment: Interpretive Data Reference Interval Normal >/= 90 mL/min/1.73m2 Mildly decreased* 60 - 89 mL/min/1.73m2 Mildly to moderately decreased 45 - 59 mL/min/1.73m2 Moderately to severely decreased 30 - 44 mL/min/1.73m2 Severely decreased 15 - 29 mL/min/1.73m2 Kidney Failure < 15 mL/min/1.73m2 *Relative to young adult level Estimated glomerular filtration rate is determined by the 2020 CKD-EPI equation recommended by the National Kidney Foundation (A Unifying Approach to GFR Estimation: Recommendations of the NKF-ASK Task Force on Reassessing the Inclusion of Race in Diagnosing Kidney Disease, JASN 2020). The CKD-EPI equation should not be used for patients with unstable renal function and has not been validated in children and those over 70. Current interpretive data was last reviewed 2021. Blood 02/24/2025 2:04 PM CDT 02/24/2025 6:56 PM CDT us Peggy Tucker MD LAB BLOOD ORDERABLES Final Result [facility] Department [place] [address] * POCT lipid panel (10/17/2023 8:24 AM PRODUCT DEVELOPMENT SPECIALIST) Cholesterol, POC 155 mg/dL HDL, POC 26 mg/dL Triglycerides, POC 84 mg/dL LDL Cholesterol POC 112 mg/dL Chol/HDL Ratio, POC 6.0 Non-HDL Cholesterol, POC 129 mg/dL Cholesterol Total, POC 155 mg/dL Capillary blood 10/17/2023 8 :24 AM PRODUCT DEVELOPMENT SPECIALIST us Allan Cooley MD POINT OF CARE TEST ORDERA BLES Final Result from Last 3 Months or Most Recently Relevant to Health Maintenance Insurance [facility] FED[employer]AL [facility] FEDERAL [facility] [employer]AL [employer] COMPENSATION GENERIC DEPT OF LABOR - CP Advance Directives For more information, please contact: [phone] * Full Code (Latest Code Status on File) Date Activated Date Inactivated Comments 08/10/2024 4:26 AM 08/17/2024 8:51 PM Care Teams Nickel Plant Operator Relationship Specialty Start Date End Date Esau Woodall DO PCP - General 02/24/17
--- OUTSIDE RECORDS SUMMARY | 2025-08-27 09:41 | XMS_ITS | Patient Health Record ---
Author Organization [facility] [employer] Address [address] [place] [address] Care Team Providers Care Ecommerce Manager Name Role Phone Av Ghosh Unavailable [phone] Reason For Referral No Information Medications Medication SIG (Take, Route, Frequency, Duration) Notes Start Date End Date Status TIZANIDINE *Reorder from [employer] for eRx and Interaction Alerts* 11/02/2020 Active metFORMIN HCl 1000 MG Tablet Oral 11/02/2020 Active Anastrozole 1 MG Tablet Oral 11/02/2020 Active LUER-ANNIE SYRINGE-NEEDLE 3 mL 21 gauge x 1 SYRINGE, EMPTY DISPOSABLE MISCELLANEOUS *Reorder from [employer] for eRx and Interaction Alerts* 11/02/2020 Active Gabapentin 300 MG Capsule Oral 11/02/2020 Active traZODone HCl 100 MG Tablet Oral 11/02/2020 Active FLUCELVAX QUAD (PF) 60 MCG (15 MCG X 4)/0.5 ML IM SYRINGE *Reorder from [employer] for eRx and Interaction Alerts* 11/02/2020 Active hydrOXYzine Pamoate 25 MG Capsule Oral 11/02/2020 Active DULoxetine HCl 30 MG Capsule Delayed Release Particles Oral 11/02/2020 Active DULoxetine HCl 60 MG Capsule Delayed Release Particles Oral 11/02/2020 Active busPIRone HCl 15 MG Tablet Oral 11/02/2020 Active Doxycycline Hyclate 100 MG Capsule Oral 11/02/2020 Active metFORMIN HCl ER 500 MG Tablet Extended Release 24 Hour Oral 11/02/2020 Active Lisinopril 20 MG Tablet Oral 11/02/2020 Active INTEGRA SYRINGE 3 mL 21 gauge x 1 1/2 SYRINGE, EMPTY DISPOSABLE MISCELLANEOUS *Reorder from [employer] for eRx and Interaction Alerts* 11/02/2020 Active Simvastatin 10 MG Tablet Oral 11/02/2020 Active HYDROcodone-Acetamin ophen 10-325 MG Tablet Oral 11/02/2020 Active Testosterone Cypionate 200 MG/ML Solution Intramuscular 11/02/2020 Active Propafenone HCl ER 325 MG Capsule Extended Release 12 Hour Oral 11/02/2020 Active metFORMIN HCl 500 MG Tablet Oral 11/02/2020 Active SILDENAFIL (PULMONARY HYPERTENSION) 20 MG TABLET *Reorder from [facility] for eRx and Interaction Alerts* 11/02/2020 Active tiZANidine HCl 4 MG Tablet Oral 11/02/2020 Active Xarelto 20 MG Tablet Oral 11/02/2020 Active Immunizations Vaccine Route Administration Date Status Comme nts Influenza virus vaccine, quadrivalent (IIV4), split virus, 0.25 mL dosage Unknown 02/03/2015 Administered Influenza virus vaccine, quadrivalent (IIV4), split virus, 0.25 mL dosage Unknown 10/04/2015 Administered Influenza, injectable, MDCK, preservative free Unknown 09/18/2017 Administered Influenza, injectable, MDCK, preservative free Unknown 12/02/2019 Administered Influenza, seasonal, injecta ble, preservative free, 3 yrs and above Unknown 08/08/2013 Administered MMR Unknown 03/31/2011 Administered Novel [id number], preservative free Unknown 09/19/2018 Administered Tdap Unknown 04/01/2011 Administered Tdap Unknown 01/03/2013 Administered Social History Social History Additional Details Category Social Info Options Details Migrated Social History Migrated Social History Alcohol Intake: Occasional 04/16/2020,Tobacco Years: Former smoker 04/16/2020,Smoking Status: 13 04/16/2020 Plan Of Treatment No Information Insurance Providers Payer Name Payer Address Payer Phone Subscriber Number Group Number Insured Name Patient Relationship to Insured Coverage Start Date Coverage End Date [employer] [employer] [address] [place] [address] [id number] Self - patient is the insured Medical (General) History Surgical History Surgery Date(Month/Year) Heart surgery
--- OUTSIDE RECORDS SUMMARY | 2025-08-27 09:41 | XMS_ITS | Encounter Summary ---
Author Organization [facility] Address [address] [place] [id number] Care Team Providers Care Court Advocate Name Role Phone Esau Woodall DO Primary Care Provider [phone] Esau Woodall DO Primary Care Provider [phone] Esau Woodall DO Primary Care Provider [phone] Mony Del Rio RN Unavailable [phone] Encounter Details Date Type Department Care Team (Late st Contact Info) Description 01/20/2017 Orders Only [facility] Provider, MD Andrea [address] [place] [id number] Social History Tobacco Use Types Packs/Day Years Used Date Smoking Tobacco: Every Day Cigarettes Last attempted to quit: 11/27/2004 Comments:Smoking History Pac ks/day: 0.5 Packs Alcohol Use Standard Drinks/Week Comments Yes 0 (1 standard drink = 0.6 oz pur e alcohol) Sex and Gender Information Value Date Recorded Sex Assigned at Not on file Legal Sex 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 Historical Provider [facility] ANGEL JORGE Final Result documented in this encounter Visit Diagnoses Not on filedocumented in this encounter Care Teams Court Advocate Relationship Specialty Start Date End Date Esau Woodall DO PCP - General 02/24/17 Esau Woodall DO PCP - General 02/10/17 02/23/17 Esau Woodall DO PCP - General 06/09/16 02/09/17 Mony Del Rio, RN [address] [address] [facility] Supervisor 08/19/24 08/21/24 documented as of this encounter
--- OUTSIDE RECORDS SUMMARY | 2025-08-27 09:41 | XMS_ITS | Clinical Summary ---
Author Organization [facility] Address [address] [place] [address] Care Team Providers Care Director Of Architecture Name Role Phone Esau Woodall DO Primary Care Provider [phone] Esau Woodall DO Unavailable Source Comments [facility],non-owned Affiliates and Associated Physician Practices is amultiple site organization consisting of ambulatory clinics and hospital sitesin [place], [place], [place] and [place]. This disclosure is being madepursuant to the Care Everywhere program and may not contain all information available regarding this patient. Last updated 18.[facility] Allergies Active Allergy Reactions Criticality Noted Date Comments Adhesive Sensitivity Other 09/02/2015 Skin sloughs upon removal Amitriptyline Rash Medium 01/15/2016 Made the heart 'Flutter Medications * Be aware that medications may not be up to date on this document. Always verify current medications with the patient. HYDROcodone-acetam inophen (NORCO) 10-325 MG tablet Take 1 Tab by mouth every 4 hours as needed for Pain Active DULoxetine (CYMBALTA) 20 MG capsule Take 60 mg by mouth once daily Active DULoxetine (CYMBALTA) 60 MG capsule Take 60 mg by mouth once daily 7 Active lisinopril (PRINIVIL;ZESTRIL) 5 MG tablet Take 20 mg by mouth once daily 7 Active Cholecalciferol 1000 UNIT/10ML Take 1,000 Units by mouth once daily Active HYDROcodone-acetam inophen (NORCO) 10-325 MG tablet Take 1 tablet by mouth every 4 hours as needed 7 Active metFORMIN (GLUCOPHAGE) 500 MG tablet Take 1 tablet by mouth 2 times daily 9 Active calcium polycarbophil (FIBERCON) 625 MG tablet Take 625 mg by mouth once daily Active Active Problems Problem Noted Date Diagnosed Date Depression 02/06/2017 Immunizations Immunization Administration Dates Next Due INFLUENZA VACCINE, QUADR. (F LUZONE; FLULAVAL; FLUARIX; AFLURIA QUADRIVALENT; 6MO+), 0.5 ML (IIV4) 08/24/2020 Social History Tobacco Use Types Packs/Day Years Used Date Smoking Tobacco: Never Smokeless Tobacco: Never Sex and Gender Information Value Date Recorded Sex Assigned at Not on file Legal Sex Male 2:03 PM CDT Gender Identity Not on file Sexual Orientation Not on file Last Filed Vital Signs Vital Sign Reading Time Taken Comments Blood Pressure 137/82 01/15/2019 5:00 PM CONSUMER MARKETING SPECIALIST Pulse 86 01/15/2019 5:00 PM CONSUMER MARKETING SPECIALIST Temperature 36.9 C (98.4 F) 08/24/2020 3:06 PM CDT Respiratory Rate 20 01/15/2019 5:00 PM CONSUMER MARKETING SPECIALIST Oxygen Saturation 97% 01/15/2019 5:00 PM CONSUMER MARKETING SPECIALIST Inhaled Oxygen Concentration - - Weight 122.5 kg (270 lb) 03/29/2018 10:10 AM CDT Height 188 cm (6' 2) 03/29/2018 10:10 AM CDT Body Mass Index 34.67 03/29/2018 10:10 AM CDT Plan of Treatment Health Maintenance Due Date Last Done Comments COLOGUARD (AGES 45-75) - COL ON CA SCREENING 1980 COLON MONITORING 1980 COLONOSCOPY - COLON CA SCREENING 1980 CT COLONOGRAPHY - COLON CA SCREENING 1980 Colorectal Cancer Screening 1980 FIT - COLON CA SCREENING 1980 FLEX SIG - COLON CA SCREENING 1980 LIPID TESTING 1980 HIV SCREENING 1995 HEPATITIS C SCREENING 01/14/1998 DTAP/TDAP/TD VACCINES (1 - Tdap) 1999 HEPATITIS B VACCINE (1 of 3 - 19+ 3-dose series) 1999 HPV VACCINE (1 - 3-dose SCDM series) 2007 DEPRESSION SCREENING 11/27/2024 COVID-19 VACCINE (1 - 2023-2 5 season) 2025 INFLUENZA VACCINE (#1) 2025 08/24/2020 ZOSTER VACCINE (1 of 2) 2030 HIB VACCINE Aged Out No longer eligi ble based on patient's age to complete this topic MENINGOCOCCAL (Group B) VACC INE SHARED DECISION-MAKING Aged Out No longer eligibl e based on patient's age to complete this topic MENINGOCOCCAL GROUPS A/C/Y/W VACCINE Aged Out No longer eligible b ased on patient's age to complete this topic PNEUMOCOCCAL VACCINE Aged Out No long er eligible based on patient's age to complete this topic Insurance [employer] Care Teams Director Of Architecture Relationship Specialty Start Date End Date Esau Woodall DO PCP - General Internal Medicine 01/15/19 Esau Woodall DO Internal Medicine 01/15/19
--- OUTSIDE RECORDS SUMMARY | 2025-08-27 09:41 | XMS_ITS | Clinical Summary ---
Author Organization [facility] Address [address] [place] [address] Care Team Providers Care Brick Chimney Builder Name Role Phone Esau Woodall DO Primary Care Provider Social History Tobacco Use Types Packs/Day Years Used Date Smoking Tobacco: Never Assessed Sex and Gender Information Value Date Recorded Sex Assigned at Not on file Legal Sex Male 6:23 PM CDT Gender Identity Not on file Sexual Orientation Not on file Plan of Treatment Health Maintenance Due Date Last Done Comments Colorectal Cancer Screening Colonoscopy (10 Years) 1980 Annual Physical 1983 Hepatitis C 1998 DTaP, Tdap and Td Vaccines ( 1 - Tdap) 1999 Hepatitis B Vaccines (1 of 3 - 19+ 3-dose series) 1999 HPV Vaccines (1 - 3-dose SCD M series) 2007 COVID-19 Vaccine ( - 2023-2 5 season) 2025 Meningococcal B Vaccine Aged Out No l onger eligible based on patient's age to complete this topic Meningococcal Vaccine Aged Out No sammy evangelista eligible based on patient's age to complete this topic Pneumococcal Vaccine: Pediat rics (0 to 5 Years) and At-Risk Patients (6 to 49 Years) Aged Out No longer eligible b ased on patient's age to complete this topic RSV Immunizations Under 20 Months Aged Out No longer eligible based on patient's age to complete this topic Care Teams Brick Chimney Builder Relationship Specialty Start Date End Date Esau Woodall DO [address] [place] [address] PCP - General 01/11/17
[2025-08-27 12:58] LABS: Hematocrit 49.8 % (42.0-52.0); Hemoglobin 15.8 g/dL (14.0-18.0); Immature Granulocyte Percent A 0.3 % (0-0.5); Lymphocytes Absolute Auto 0.97 K/mm3 (0.9-3.2); Mean Corpuscular HGB Conc 31.7 g/dl (32-36); Mean Corpuscular Hemoglobin 29.3 pg (26-34); Mean Corpuscular Volume 92.4 fl (80-100); Nucleated Red Blood Cells Absolute Auto 0.000 K/mm3 (0.0-0.012); Nucleated Red Blood Cells Perc 0.0 % (0.0-0.2); Platelet Count Result 293 k/mm3 (150-375); Red Blood Count 5.39 M/mm3 (4.6-6.20); White Blood Count 7.1 K/mm3 (4.5-10.0)
[2025-08-27 13:14] LABS: Alanine Aminotransferase 28 U/L (6-50); Albumin Level 4.7 g/dL (3.5-5.1); Alkaline Phosphatase 61 U/L (38-126); Anion Gap 10 mmol/L (4-12); Aspartate Amino Transferase 51 U/L (17-59); Bilirubin,Total 1.1 mg/dL (0.2-1.3); Blood Urea Nitrogen 15 mg/dL (9-20); Calcium 9.5 mg/dL (8.4-10.2); Carbon Dioxide 29 mmol/L (22-30); Chloride 100 mmol/L (98-107); Cholesterol 135 mg/dL (0-200); Estimated Glomerular Filt Rate > 60; Glucose 83 mg/dL (65-110); HDL Direct 37 mg/dL; Potassium 3.8 mmol/L (3.4-5.0); Sodium 139 mmol/L (137-145); Total Protein 7.7 g/dL (6.3-8.2); Triglycerides 98 mg/dL (<150)
[2025-08-27 13:19] LABS: Hemoglobin A1C 6.2 % (<5.7)
[2025-08-27 13:36] LABS: MALB Creatinine Ratio 8.3 mg/g (0-30)
[2025-08-27 13:50] LABS: Prostate Specific Antigen 2.1 ng/mL (< OR = 4.0)
[2025-08-30 15:09] LABS: Free Testosterone (Direct) 12.6 pg/mL (6.8-21.5)
== END 2025-08-27 09:14 | disposition home or self-care (01) ==
LOC: ANHGOSHLAB 09:14
PROVIDERS: PCP Internal Medicine; Visit Provider Internal Medicine
DX: I48.91 Unspecified atrial fibrillation (principal); I10 Essential (primary) hypertension; E11.69 Type 2 diabetes mellitus with other specified complication; E78.5 Hyperlipidemia, unspecified; Z51.81 Encounter for therapeutic drug level monitoring; Z79.890 Hormone replacement therapy; D75.1 Secondary polycythemia; E11.9 Type 2 diabetes mellitus without complications
CPT/HCPCS: 36415; 80053; 80061; 82043; 82172; 83036; 84153; 84402; 84403; 85025